=== PATIENT | male | born 1965 | race Caucasian/White ===

== ENCOUNTER 2020-02-11 11:16 | Emergency (ER) | payer OTHER, SELFPAY ==
--- NOTE | ~2020-02-11 | XR_ITS ---
XR chest 1V portable DATE: 02/11/2020 11:52 INDICATION: Cough, shortness of breath TECHNIQUE: Portable upright AP chest on 02/11/2020 at 1147 hours COMPARISON: 03/18/2012 two-view chest FINDINGS: Normal heart size. Mild aortic unfolding. No hilar or mediastinal enlargement. No pulmonary infiltrate or consolidation, pleural effusion or pulmonary vascular congestion or pneumo thorax. Osteopenia. IMPRESSION: No active cardiopulmonary disease Reviewed, dictated and finalized at location B.
[2020-02-11 11:33] VITALS: BP 195/122; PULSE 105; RESP 22; TEMP 36.4; O2SAT 99
[2020-02-11 11:37] VITALS: PULSE 106
--- NOTE | 2020-02-11 11:38 | ED.SOB ---
HPI - SOB/Dyspnea General Chief Complaint: Shortness of Breath/Dyspnea Stated Complaint: shortness breath Time Seen by Provider: 02/11/20 11:21 Source: patient Mode of arrival: ambulatory Limitations: no limitations History of Present Illness HPI Narrative: Patient is a 54-year-old male who presents to emergency department for evaluation of upper respiratory symptoms with pleuritic chest pain. Patient notes possible exposure to work-up with positive individual. 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 Patient denies any vomiting diarrhea. Patient on arrival is in the room in no distress. Related Data Allergies Allergy/AdvReac Type Severity Reaction Status Date / Time No Known Allergies Allergy Verified 02/11/20 11:38 Review of Systems Review of Systems: All systems reviewed & are unremarkable except as noted in HPI and below PMFSH Past Medical History Medical History (Updated 02/11/20 @ 13:02 by Oscar Borden PA-C) Hypertension Family History Family History Father Family history of malignant neoplasm, Onset Age: 65 Other Cerebrovascular accident Diabetes mellitus Family history of arthritis Family history of cardiovascular disease Family history of coronary artery disease Hypertension Social History Social History Smoking status: Never smoker Alcohol intake: current Gender identity (if verbalized by the patient): Male Exam Narrative: Exam Narrative: GENERAL: Well-appearing, well-nourished, and in no acute distress. HEAD: Normocephalic, atraumatic. EYES: PERRLA and EOMI. ENT: Nares clear, no rhinorrhea or epistaxis. Mucous membranes moist. Oropharynx without tonsillar hypertrophy exudate or other lesions. NECK: Supple. No adenopathy or masses CHEST: Clear to auscultation. No respiratory distress. No wheezes rales or rhonchi HEART: Regular rate and rhythm. No murmur heard. EXTREMITIES: Normal range of motion. No edema. SKIN: Warm, dry, no rash. NEURO: No focal deficits. Alert and oriented x3. PSYCH: Normal mood and affect. Course Course Emergency Course: Patient in the room at this time afebrile nontoxic-appearing hemodynamically stable advised to take his blood pressure medications at home no pneumonia no hypoxemia patient with likely viral syndrome patient advised that he could have the novel coated virus and advised to self quarantine and provided with specific reasons to return Vital Signs Vital signs: Vital Signs Temperature 97.6 F 02/11/20 11:33 Pulse Rate 105 H 02/11/20 11:33 Respiratory Rate 22 H 02/11/20 11:33 Blood Pressure 195/122 H 02/11/20 11:33 Pulse Oximetry 99 02/11/20 11:33 Temperature 97.6 F 02/11/20 11:33 Pulse Rate 106 H 02/11/20 11:37 Respiratory Rate 22 H 02/11/20 11:33 Blood Pressure 195/122 H 02/11/20 11:33 Pulse Oximetry 99 02/11/20 11:33 MDM - SOB/Dyspnea MDM Narrative Medical decision making narrative: Patient in the room aware of case findings treatment plan and diagnosis agreeing to follow-up as directed Lab Data Labs: Strep Screen Presumptive Negative *(Reference Range: Negative)* ABG Data Interpretation: ITS Impressions Chest X-Ray 02/11/20 11:53 IMPRESSION: No active cardiopulmonary disease ECG Data EKG #1: ECG completion date: 02/11/20 ECG completion time: 11:25 EKG Interpretation: tachycardia, sinus rhythm, normal QRS, RBBB and left axis Discharge Plan Discharge Clinical Impression: Acute viral syndrome, Upper respiratory infection Patient Disposition: Home, Self-Care Condition: Stable Instructions: Antibiotic Form, Novel C
[2020-02-11 12:12] LABS: Basophils Absolute Auto 0.1 K/mm3 (0.0-0.1); Basophils Percent Auto 0.8 % (0.2-1.2); Eosinophils Absolute Auto 0.3 K/mm3 (0-0.3); Eosinophils Percent Auto 4.7 % (0-4.4); Hematocrit 45.6 % (42.0-52.0); Hemoglobin 15.9 g/dL (14.0-18.0); Immature Granulocyte Absolute 0.02 K/mm3 (0.00-0.031); Immature Granulocyte Percent A 0.3 % (0-0.5); Lymphocytes Absolute Auto 1.29 K/mm3 (0.9-3.2); Lymphocytes Percent Auto 20.9 % (18.3-44.2); Mean Corpuscular HGB Conc 34.9 g/dl (32-36); Mean Corpuscular Volume 94.6 fl (80-100); Mean Platelet Volume 12.6 fl (7.4-10.4); Monocytes Absolute Auto 0.6 K/mm3 (0.1-0.6); Monocytes Percent Auto 8.9 % (2.6-8.5); Neutrophils Percent Auto 64.4 % (45.5-73.1); Platelet Count Result 208 k/mm3 (150-375); Red Blood Count 4.82 M/mm3 (4.6-6.20); Red Cell Distribution Width 12.5 % (11.5-14.5); White Blood Count 6.2 K/mm3 (4.5-10.0)
[2020-02-11 12:29] LABS: Alanine Aminotransferase 36 U/L (4-50); Albumin Level 4.7 g/dL (3.5-5.1); Alkaline Phosphatase 70 U/L (38-126); Aspartate Amino Transferase 28 U/L (17-59); Bilirubin,Total 0.5 mg/dL (0.2-1.3); Blood Urea Nitrogen 13 mg/dL (9-20); CRP < 0.5 mg/dL (<1.0); Calcium 9.2 mg/dL (8.4-10.2); Carbon Dioxide 25 mmol/L (22-30); Chloride 101 mmol/L (98-107); Estimated CRCL calculation 106 ml/min; Estimated Glomerular Filt Rate > 60; Glucose 125 mg/dL (75-110); Lactate Dehydrogenase 399 U/L (313-618); Potassium 4.1 mmol/L (3.4-5.0); Sodium 136 mmol/L (137-145)
[2020-02-11 12:38] LABS: Troponin I < 0.012 ng/mL (0.000-0.034)
[2020-02-11 12:47] VITALS: BP 170/110; PULSE 88; RESP 22; O2SAT 96
--- NOTE | 2020-02-11 13:12 | ECG_ITS ---
Measurements Intervals [place] Rate: 101 P: 17 [place]: 176 QRS: -34 QRSD: 94 T: 73 QT: 358 QTc: 465 Interpretive Statements SINUS TACHYCARDIA LEFT AXIS DEVIATION LOW QRS VOLTAGE IN PRECORDIAL LEADS INCOMPLETE RIGHT BUNDLE BRANCH BLOCK LEFT VENTRICULAR HYPERTROPHY AND ST-T CHANGE POOR R WAVE PROGRESSION, ANTERIOR LEADS LATERAL INFARCT, AGE INDETERMINATE BASELINE WANDER- I, III, V1-V5 ABNORMAL ECG Electronically Signed On 02-11-2020 13:22:23 CDT by Raul Zheng D.O.
[2020-02-11 13:38] VITALS: BP 157/104; PULSE 78; RESP 18; O2SAT 97
[2020-02-18 14:44] LABS: Pan-SARS RNA: NEGATIVE (NEGATIVE); SARS-CoV-2 RNA: NEGATIVE (NEGATIVE)
== END 2020-02-11 13:38 | disposition home or self-care (01) ==
PROVIDERS: Emergency Medicine Emergency Medical Services; Emergency Provider Emergency Medicine; PCP Emergency Medicine
DX: J06.9 Acute upper respiratory infection, unspecified (principal); B34.9 Viral infection, unspecified; Z20.828 Contact with and (suspected) exposure to other viral communicable diseases; I10 Essential (primary) hypertension; R00.0 Tachycardia, unspecified; R94.31 Abnormal electrocardiogram [ECG] [EKG]; I45.10 Unspecified right bundle-branch block; I51.7 Cardiomegaly
CPT/HCPCS: 36415; 71045; 80053; 83615; 84484; 85025; 86140; 87081; 87635; 87804; 87880; 93005; 99284; U0002

== ENCOUNTER 2021-01-05 10:46 | Emergency (ER) | payer OTHER, SELFPAY ==
--- NOTE | ~2021-01-05 | XR_ITS ---
XR lumbar spine 2-3V DATE: 01/05/2021 12:04 INDICATION: Back pain after moving furniture TECHNIQUE: AP, lateral, coned lateral lumbosacral views COMPARISON: None FINDINGS: There is moderate degenerative disc disease at L5-S1. There is minimal degenerative spurrin g of the lumbar vertebrae. No fracture or bone destruction is evident. The lumbar pedicles are intact. No spondylolisthesis. Normal sacroiliac joints. IMPRESSION: No fracture; degenerative changes Reviewed, dictated and finalized at location A. OF ADVERTISING
[2021-01-05 10:48] VITALS: BP 151/104; PULSE 82; RESP 18; TEMP 36.4; O2SAT 100
[2021-01-05] MEDS: KETOROLAC 30 MG/ML VIAL (*BKC) IM (11:52)
--- NOTE | 2021-01-05 12:45 | ED.BACK ---
HPI - Back Pain/Injury General Chief Complaint: Back Pain/Injury Stated Complaint: Lower Back Pain Time Seen by Provider: 01/05/21 11:18 Source: patient Mode of arrival: ambulatory Limitations: no limitations History of Present Illness HPI Narrative: Patient presents with chief complaint of low back pain that began over the weekend after he was shampooing carpets and moving furniture around. He denies one instance of feeling a popping sensation. Patient denies any falls or direct impact. Patient denies any radiation of the low back pain into his lower extremities, saddle paresthesias or loss of bowel or bladder function. Patient states that he has been waiting for the pain to get better over the past few days but has not so he came to the emergency department. Related Data Allergies Allergy/AdvReac Type Severity Reaction Status Date / Time No Known Allergies Allergy Verified 01/05/21 10:51 Review of Systems Review of Systems: Narrative: CONSTITUTIONAL: Denies fever, chills, or sweats. EYES: Denies visual changes, redness, or discharge. ENT: Denies rhinorrhea, congestion, sore throat, or otalgia. CARDIOVASCULAR: Denies chest pain, palpitations, or edema. RESPIRATORY: Denies cough or dyspnea. GASTROINTESTINAL: Denies abdominal pain, nausea, vomiting, or diarrhea. GENITOURINARY: Denies dysuria or hematuria. SKIN: Denies rash or itching. MUSCULOSKELETAL: Reports back pain denies joint pain, or myalgia. NEUROLOGIC: Denies headache, numbness, dizziness, or weakness. PSYCHIATRIC: Denies anxiety or depression. [facility] Past Medical History Medical History (Updated 01/05/21 @ 12:44 by Arias Ingram PA-C) Hypertension Family History Family History Father Family history of malignant neoplasm, Onset Age: 65 Other Cerebrovascular accident Diabetes mellitus Family history of arthritis Family history of cardiovascular disease Family history of coronary artery disease Hypertension Social History Social History Smoking status: Never smoker Alcohol intake: current Gender identity (if verbalized by the patient): Male Exam Narrative: Exam Narrative: GENERAL: Well-appearing, well-nourished, and in no acute distress. HEAD: Normocephalic, atraumatic. EYES: PERRLA and EOMI. CHEST: Clear to auscultation. No respiratory distress. No wheezes rales or rhonchi HEART: Regular rate and rhythm. No murmur heard. Normal peripheral pulses. BACK: Diffuse tenderness with palpation along lower lumbar. No step offs palpated and spine seems to be in typical alignment. ROM intact. No radicular pain. Sensation intact to groin. Patient does move stiffly and has pain with rotation, flexion, and extension. EXTREMITIES: Normal range of motion. No edema. SKIN: Warm, dry, no rash. NEURO: No focal deficits. Alert and oriented x3. PSYCH: Normal mood and affect. Course Vital Signs Vital signs: Vital Signs Temperature 97.5 F L 01/05/21 10:48 Pulse Rate 82 01/05/21 10:48 Respiratory Rate 18 01/05/21 10:48 Blood Pressure 151/104 H 01/05/21 10:48 Pulse Oximetry 100 01/05/21 10:48 Temperature 97.5 F L 01/05/21 10:48 Pulse Rate 82 01/05/21 10:48 Respiratory Rate 18 01/05/21 10:48 Blood Pressure 151/104 H 01/05/21 10:48 Pulse Oximetry 100 01/05/21 10:48 MDM - Back Pain/Injury MDM Narrative Medical decision making narrative: Patient does not have any acute abnormalities on his x-ray. Patient will be given Medrol Dosepak to decrease inflammation and cyclobenzaprine. Patient states he has been taking Tylenol and ibuprofen [id number]. Patient is instructed to follow-up with his primary care for further investigation to his symptoms today. Patient instructed to return to emergency department if he has any emergent symptoms. Differential Diagnosis Differential diagnosis: Likely lumba
[2021-01-05 13:07] VITALS: BP 158/90; PULSE 80; RESP 14; O2SAT 99
== END 2021-01-05 13:09 | disposition home or self-care (01) ==
PROVIDERS: Emergency Provider Emergency Medicine; PCP Emergency Medicine
DX: S39.012A Strain of muscle, fascia and tendon of lower back, initial encounter (principal); I10 Essential (primary) hypertension; X50.0XXA Overexertion from strenuous movement or load, initial encounter
CPT/HCPCS: 72100; 96372; 99283; J1885

== ENCOUNTER 2021-10-04 09:07 | Outpatient (CLI) | payer OTHER, SELFPAY ==
--- NOTE | ~2021-10-04 | NM_ITS ---
EXAMINATION: NM bone scan whole body DATE: 10/04/2021 16:07 INDICATION: Prostate cancer. TECHNIQUE: 25.7 mCi Tc-99m HDP was administered intravenously. Delayed whole-body scintigrams were o btained. COMPARISON: CT abdomen and pelvis 10/04/2021 FINDINGS: There is joint-centimeters increased activity in the left knee and right foot without radio graphic comparison, likely osteoarthritis. There is increased activity at the ischial tuberosities bi laterally correlating with enthesopathy by CT. IMPRESSION: 1. No evidence of metastatic disease. Reviewed, dictated and finalized at location B. 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
--- NOTE | ~2021-10-04 | CT_ITS ---
EXAMINATION: CT abdomen pelvis w con DATE: 10/04/2021 09:41 INDICATION: Prostate cancer. TECHNIQUE: Computed tomography (CT) of the abdomen and pelvis was performed with 100 mL Omnipaque 350 intravenous contrast. Automated exposure control and iterative reconstruction technique were employe d. The dose-length product was 1001.81 mGy-cm. COMPARISON: CT abdomen and pelvis 01/13/2017 FINDINGS: The visualized portions of the lung bases demonstrate mild atelectasis. No pleural effusion . There is left atrial enlargement of the heart. No pericardial effusion. The liver and gallbladder a re normal. Calcifications in the spleen are consistent with old granulomatous disease. The pancreas, adrenal glands, and right kidney are normal. There is a 7 mm cyst in left kidney with focal cortical volume loss. There is a 10 mm cyst in left kidney. The prostate is mildly enlarged. There are bilater al inguinal hernias containing fat. There is diverticulosis of the colon without evidence of divertic ulitis. There are no dilated loops of bowel. The appendix is normal. There are no pathologically enla rged lymph nodes. There is no free intraperitoneal fluid. There is mild thoracic spondylosis and mode rate lumbar spondylosis. There are benign bone islands in the femoral heads. IMPRESSION: 1. No evidence of metastatic disease. Reviewed, dictated and finalized at location B. THERAPY NURSE
[2021-10-04 09:35] LABS: Estimated Glomerular Filt Rate > 60
== END 2021-10-04 09:08 | disposition home or self-care (01) ==
LOC: ANHIMG 09:10
PROVIDERS: PCP Emergency Medicine; Visit Provider Urology
DX: C61 Malignant neoplasm of prostate (principal)
CPT/HCPCS: 74177; 78306; A9561; Q9967

== ENCOUNTER 2021-11-14 08:51 | Outpatient (CLI) | payer OTHER, SELFPAY ==
--- NOTE | ~2021-11-14 | XR_ITS ---
EXAMINATION: XR chest 2V DATE: 11/14/2021 10:15 INDICATION: Malignant neoplasm of prostate. TECHNIQUE: Frontal and lateral views of the chest were obtained. COMPARISON: Chest single view 02/11/2020, CT abdomen and pelvis 10/04/2021 FINDINGS: The chest demonstrates clear lungs without pneumonia, pleural effusion, or pneumothorax. Th e heart size is normal. IMPRESSION: 1. No acute cardiopulmonary disease. Reviewed, dictated and finalized at location A. 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
--- NOTE | 2021-11-14 09:53 | ECG_ITS ---
Measurements Intervals [place] Rate: 64 P: 14 [place]: 191 QRS: -23 QRSD: 93 T: 12 QT: 420 QTc: 433 Interpretive Statements SINUS RHYTHM INCOMPLETE RIGHT BUNDLE BRANCH BLOCK VOLTAGE CRITERIA FOR LVH BASELINE ARTIFACT- I, II, III, AVR, AVL, AVF, V2, V6 BORDERLINE ECG Electronically Signed On 11-14-2021 10:14:02 LICENSED ACUPUNCTURIST by Raul Zheng D.O.
[2021-11-14 10:26] LABS: Basophils Absolute Auto 0.1 K/mm3 (0.0-0.1); Basophils Percent Auto 0.9 % (0.2-1.2); Eosinophils Absolute Auto 0.3 K/mm3 (0-0.3); Eosinophils Percent Auto 6.1 % (0-4.4); Hematocrit 45.2 % (42.0-52.0); Hemoglobin 16.4 g/dL (14.0-18.0); Immature Granulocyte Absolute 0.01 K/mm3 (0.00-0.031); Immature Granulocyte Percent A 0.2 % (0-0.5); Lymphocytes Absolute Auto 0.88 K/mm3 (0.9-3.2); Lymphocytes Percent Auto 16.7 % (18.3-44.2); Mean Corpuscular HGB Conc 36.3 g/dl (32-36); Mean Corpuscular Hemoglobin 33.9 pg (26-34); Mean Corpuscular Volume 93.4 fl (80-100); Mean Platelet Volume 11.7 fl (7.4-10.4); Monocytes Absolute Auto 0.6 K/mm3 (0.1-0.6); Monocytes Percent Auto 11.2 % (2.6-8.5); Neutrophils Absolute Auto 3.4 K/mm3 (1.3-6.7); Neutrophils Percent Auto 64.9 % (45.5-73.1); Platelet Count Result 175 k/mm3 (150-375); Red Blood Count 4.84 M/mm3 (4.6-6.20); Red Cell Distribution Width 12.7 % (11.5-14.5); White Blood Count 5.3 K/mm3 (4.5-10.0)
[2021-11-14 10:27] LABS: Add Urine Microscopic? NO; Appearance Urine Clear (Clear); Bilirubin Urine Negative (Negative); Blood Urine Negative (Negative); Color Urine Yellow (Yellow); Glucose Urine UA Negative (Negative); Ketones Urine Negative (Negative); Leukocyte Esterase Ur Negative LEU/UL (Negative); Nitrate Urine Negative (Negative); Protein Urine Negative (Negative); Specific Grav Ur 1.017 (1.001-1.035); Urobilinogen Urine Negative mg/dL (<2.0)
[2021-11-14 10:36] LABS: INR 0.9; Prothrombin Time 12.2 Seconds (11.1-14.7)
[2021-11-14 10:37] LABS: Partial Thromboplastin Time 24.4 SECONDS (22.3-36.8)
[2021-11-14 10:40] LABS: Alanine Aminotransferase 69 U/L (4-50); Albumin Level 4.7 g/dL (3.5-5.1); Alkaline Phosphatase 67 U/L (38-126); Anion Gap 9 mmol/L (8-16); Aspartate Amino Transferase 40 U/L (17-59); Bilirubin,Total 0.7 mg/dL (0.2-1.3); Blood Urea Nitrogen 12 mg/dL (9-20); Calcium 9.6 mg/dL (8.4-10.2); Carbon Dioxide 26 mmol/L (22-30); Chloride 106 mmol/L (98-107); Estimated Glomerular Filt Rate > 60; Glucose 110 mg/dL (65-110); Potassium 4.5 mmol/L (3.4-5.0); Sodium 141 mmol/L (137-145)
== END 2021-11-14 08:52 | disposition home or self-care (01) ==
PROVIDERS: PCP Emergency Medicine; Visit Provider Urology
DX: C61 Malignant neoplasm of prostate (principal); Z01.818 Encounter for other preprocedural examination; I45.10 Unspecified right bundle-branch block
CPT/HCPCS: 36415; 71046; 80053; 81003; 85025; 85610; 85730; 86850; 86900; 86901; 93005

== ENCOUNTER 2021-11-24 00:20 | Day surgery (SDC) | payer OTHER, SELFPAY ==
[2021-11-14 08:58] VITALS: BMI 32.8
--- NOTE | 2021-11-14 09:15 | PC.NURSE ---
Report to the Outpatient Waiting Room, entrance under the green pavilion located off [facility], at time ___0600____ on date _11/24/21 . OR Time: . - You and your visitor will be asked a series of questions to screen for COVID 19 for your protection. - A mask is required within the hospital. - Only one visitor is allowed at this time. Patient visitors will be guided where to wait when not with patient. Preoperative COVID Testing Requirements: No COVID Test needed if: (proof is required; if not received patient will have Rapid Test prior to entry) - Patient has received COVID Vaccine at least 14 days prior to procedure date or - Patient has positive COVID test result within last 90 days of surgery date. COVID Test needed if above criteria is not met If not COVID vaccinated a COVID test must be conducted within 72 hours of surgery and patient is asked to isolate self from time of testing until procedure. You will go to the [employer] [facility] for your COVID testing. The [employer] [facility] site is located at the corner of [address] from [facility]. You will only be called if COVID results are positive and your surgeon may reschedule your elective surgery date. Patients may have clear liquids (water, carbonated beverages, clear teas, apple juice) until 3 hours prior to surgery with a maximum of 20 ounces. - No food from midnight until time of surgery - Infants may have breast milk until 4 hours before surgery, formula 6 hours prior to surgery. - Children will be allowed to drink immediately following surgery. If applicable, please bring a bottle or sippy cup to assist with drinking. Juice, water, soda, and popsicles are readily available. For infants on formula, please bring formula the day of surgery. Pacifiers are allowed. Take the following medications with a SIP of water the morning of surgery: ___ALPRAZOLAM,METOPROLOL,SERTRALINE Medications to discontinue per physician ___NONE Date to take last dose Please no make-up, nail burkinan, hairspray, perfume, deodorant, or body powder the day of surgery. No jewelry (including any body piercings) or valuables the day of surgery, leave them at home. Please take a shower or bath the night before, or the morning of, surgery with an antibacterial soap. Wear comfortable, loose fitting clothing. Children are encouraged to wear pajamas. - Jewelry must be removed prior to entering the operating room. Rings and piercings that are not removed may be cut off. - The hospital will not accept responsibility for valuables. - Please leave all valuables, including medications, at home the day of surgery. If you are going home after surgery, a licensed school bus driver/mechanic must drive you home. - NO public transportation without another adult. - We recommend that an adult stay with you for 24 hours following discharge. - We also recommend that you do not drive, make important decision, drink alcoholic beverages, or take any drugs that were not prescribed by your health care provider for at least 24 hours after your discharge time. For Pediatric surgeries, we recommend two adults accompany the child home (only one inside the building at this time). Follow any additional instructions given to you from your surgeon. BOWEL PREP PER DR LEWIS VERBAL instructions given to __PATIENT and asked if any additional questions and then verbalized understanding. Patient advised to call surgeon office or pre surgery nurse liaison [phone] if any additional questions.
[2021-11-14 09:32] VITALS: BP 166/99; PULSE 60; RESP 16; TEMP 36.7; O2SAT 98
--- NOTE | 2021-11-17 07:18 | P.HP_ITS ---
H&P: HPI History of Present Illness Date/Time: 11/17/21 07:18 56-year-old male recently referred with a PSA of 7.93. Underwent transrectal ultrasound and biopsy which revealed adenocarcinoma in 11 of 12 cores. [place] score was 6 and 3+4=7 but there was noted to be intraductal components in 2 of the [address] scan of the abdomen and pelvis, bone scan and chest x- ray showed no evidence of metastatic disease. After careful discussion of therapeutic options including active surveillance, androgen deprivation, radiation therapy in its various forms and radical exstrophy of surgery he has elected for the latter. He is aware the risk including, but not limited to, adverse cardiopulmonary events, mortality, rectal injury, urinary incontinence and erectile dysfunction. He is also aware of the potential need for adjuvant therapy. Chief Complaint: Prostate cancer Review of Systems Cardiovascular: Cardiovascular: Denies chest pain, Denies lightheadedness, Denies palpitations and Denies dyspnea Respiratory: Respiratory: Denies dyspnea Gastrointestinal: Gastrointestinal: Denies diarrhea, Denies nausea and Denies vomiting Genitourinary: Genitourinary: Denies hematuria and Denies dysuria Endocrine: Endocrine: Denies palpitations PMF Past Medical History Medical History Hypertension Family History Family History Father Family history of malignant neoplasm, Onset Age: 65 Other Cerebrovascular accident Diabetes mellitus Family history of arthritis Family history of cardiovascular disease Family history of coronary artery disease Hypertension Social History Social History Smoking status: Never smoker Alcohol intake: current Drinks per week: 10 Gender identity (if verbalized by the patient): Male Spiritual care concerns: No Meds Home Medications and Allergies Home Medications Medication Instructions Recorded Confirmed Type metoprolol succinate 100 mg See Rx Instructions .ROUTE 02/21/21 11/14/21 Rx tablet,extended release 24 hr .COMPLEX #90 tablet sertraline 100 mg tablet 100 mg PO DAILY #90 tablet 07/12/21 11/14/21 Rx losartan 100 mg tablet See Rx Instructions .ROUTE 08/12/21 11/14/21 Rx .COMPLEX #90 tablet phentermine 37.5 mg capsule 37.5 mg PO DAILY #30 cap 10/10/21 11/14/21 Rx topiramate 25 mg tablet 25 mg PO QAM #30 tablet 10/10/21 11/14/21 Rx alprazolam [Xanax] 0.5 mg PO PRN PRN 11/14/21 11/14/21 History omeprazole 20 mg PO PRN PRN 11/14/21 11/14/21 History Allergies Allergy/AdvReac Type Severity Reaction Status Date / Time No Known Allergies Allergy Verified 11/14/21 08:59 Exam Const: General: no acute distress Resp: Effort & Inspection: normal respiratory effort GI: Inspection: non-distended GI Palp: No abdominal tenderness and No Guarding due to palpation present (GI) Auscultation: normal bowel sounds Assessment and Plan Assessment and plan (1) Prostate cancer: Code(s): C61 - Malignant neoplasm of prostate Status: Acute Assessment and Plan: * Robotic assisted radical prostatectomy with bilateral pelvic lymphadenectomy
[2021-11-24] VITALS (21 sets, daily range): BP systolic 88–150; BP diastolic 54–97; PULSE 60–71; RESP 12–20; TEMP 36–36.6; O2SAT 88–100
[2021-11-24] MEDS: LACTATED RINGERS 1,000 ML 30 ML IV CONT ×3 (06:30→11:56)
--- NOTE | 2021-11-24 06:48 | P.PNAN_ITS ---
Anes - Initial Pre Proc Eval Procedure: Operation Date: 11/24/21 07:30 Proposed Procedures p Robotic Assisted Laparoscopic Prostatectomy with Bilateral Pelvic Lymph Node Dissection - Shreyas Max MD Date/Time: 11/24/21 06:48 Surgeon: Shreyas Max MD Pre Op Diagnosis: prostate cancer Patient Data Age: 56 Gender: M Height: 1.85 m Weight: 112.9 kg Last Vital Signs Temp 36.7 C 11/14/21 09:32 Pulse 60 11/14/21 09:32 Resp 16 11/14/21 09:32 BP 166/99 H 11/14/21 09:32 Pulse Ox 98 11/14/21 09:32 Allergies Allergy/AdvReac Type Severity Reaction Status Date / Time No Known Allergies Allergy Verified 11/24/21 06:17 Home Medications Medication Instructions Recorded Confirmed Type sertraline 100 mg tablet 100 mg PO DAILY #90 tablet 07/12/21 11/24/21 Rx phentermine 37.5 mg capsule 37.5 mg PO DAILY #30 cap 10/10/21 11/14/21 Rx topiramate 25 mg tablet 25 mg PO QAM #30 tablet 10/10/21 11/14/21 Rx alprazolam [Xanax] 0.5 mg PO PRN PRN 11/14/21 11/24/21 History omeprazole 20 mg PO PRN PRN 11/14/21 11/24/21 History losartan 100 mg PO DAILY 11/24/21 11/24/21 History metoprolol succinate 100 mg PO DAILY 11/24/21 11/24/21 History Patient hx anesthesia problems: none Family hx anesthesia problems: none Results Review: All pre-operative results and documents have been reviewed as part of the pre-operative evaluation. [facility] Past Medical History Medical History (Updated 11/17/21 @ 07:20 by Shreyas Max MD) Hypertension Surgical History Surgical History (Updated 11/24/21 @ 06:57 by Tevin Self MD) H/O arthroscopic knee surgery Family History Family History Father Family history of malignant neoplasm, Onset Age: 65 Other Cerebrovascular accident Diabetes mellitus Family history of arthritis Family history of cardiovascular disease Family history of coronary artery disease Hypertension Social History Social History Smoking status: Never smoker Alcohol intake: current Drinks per week: 10 Living arrangements: with family Gender identity (if verbalized by the patient): Male Spiritual care concerns: No Anes - Eval Final PreProcedure Day of Procedure 11/24/21 06:48 Patient weight: obese Lungs: clear to auscultation Airway: Mallampati scale class II Neurological: alert and oriented Last oral intake: >/= 8 hours ASA classification: III Emergent: no Anesthetic plan: proceed Anesthesia type and monitoring: general ETT and standard monitoring Results Review: All pre-operative results and documents have been reviewed as part of the pre-operative evaluation. Informed Consent: The patient's anesthetic plan and its attendant risks and benefits were discussed with the patient/family/POA. Questions were solicited and answers provided to the satisfaction of the patient/family/POA.
--- NOTE | 2021-11-24 07:00 | WPDHPUPDATE1 ---
History and Physical Update Update Date/Time: 11/24/21 07:00 History and Physical has been reviewed, including an updated exam of the patient. There are NO changes in the patient's condition. Risks, benefits, and alternatives have been discussed and questions answered. Patient agrees to proceed with procedure.
[2021-11-24] MEDS: ceFAZolin 2 GM/D5W 50 ML 2 GM/50 ML BAG IVPB (07:28)
--- NOTE | 2021-11-24 11:07 | W.PM.PROC2 ---
Procedure Note - Detailed Date of Procedure 11/24/21 Pre-op Diagnosis prostate cancer Post-op Diagnosis same Procedure Performed Robotic-assisted radical prostatectomy with bilateral pelvic lymphadenectomy Surgeon Shreyas Max MD Description of Procedure The patient was brought to the operative suite, where he was prepped and draped in routine sterile fashion while in a dorsal lithotomy, deep Trendelenburg position. A supraumbilical 10 mm trocar was placed after insufflation of the abdomen with a Veress needle. Three robotic ports were then placed under direct vision. Two of these were placed in the right lower quadrant - 10 cm and 20 cm lateral to, and in line with, the umbilicus. A third robotic trocar was placed 10 cm to the left of the umbilicus, and 20 cm to the left of the umbilicus, a 12 mm standard laparoscopic trocar was placed to be used as an assistant technician port. Lastly, a 5 mm trocar was placed in the left upper quadrant midway between the umbilicus and the left robotic trocar. Attention was then turned to the prostatectomy. I opted for a posterior approach in this patient. An incision was made in the parietal peritoneum along the posterior bladder/posterior prostate about 2 cm above the reflection of the peritoneum over the anterior rectum. The seminal vesicles and vas deferens were immediately identified. Dissection is undertaken in a fashion so as to avoid electrocautery as much as possible, particularly near the tips of the seminal vesicles. Dissection was also carried out in the midline so as to avoid any encounters with the ureters. The vas deferens and the seminal vesicles were dissected in their entirety to the base of the prostate. The plane anterior to Denoviller's fascia, anterior to the rectum and posterior to the prostate was then developed. I then dropped the bladder by incising the anterior parietal peritoneum just lateral to the median umbilical ligaments bilaterally. The bladder was dropped from the anterior abdominal and pelvic wall. The endopelvic fascia was identified and incised bilaterally, allowing for dissection of the posterior-lateral aspect of the prostate. The puboprostatic ligaments were transected near their origin from the posterior pubic ramus. This posterior lateral dissection of the prostate is also undertaken in a fashion so as to avoid electrocautery as much as possible. The dorsal vein of the penis is then secured with an 0 -Vicryl ligature. Attention is then turned to the bladder neck. The anterior bladder neck is incised at the vesico-prostatic junction. The previously placed urethral catheter was drawn through the urethrotomy. A very small bladder neck was maintained throughout the remainder of this dissection. The posterior bladder neck was incised in a fashion so as to avoid any injury to the ureteral orifices. Again, the small aperture of the bladder neck was maintained. The previously dissected vas deferens and the seminal vesicles were brought through the posterior bladder neck incision. The lateral prostatic pedicles were then carefully dissected from the lateral aspect of the prostate bilaterally. The prostatic pedicles were secured with Weck clips and transected. The neurovascular bundles were carefully dissected from the posterior-lateral aspect of the prostate. The dorsal vein of the penis was incised with electrocautery. Using cold scissors, the urethra was incised. After withdrawing the previously placed urethral catheter, the posterior urethra was sharply incised, as was the rectalurethralis muscle. Attention was then turned to an extended bilateral pelvic lymphadenectomy. The limits of this dissection were similar bilaterally. Specifically, the limits were the bifurcation of the common iliac vein proximally, the inguinal ligament distally, the obturator nerve posteriorly and the anterior aspect to the external iliac artery laterally. This dissection was undertaken with care to av
[2021-11-24] MEDS: fentaNYL CITRATE INJ (*CRX) 100 MCG/2 ML VIAL 25 MCG IV PUSH ×5 (12:08→12:45)
[2021-11-24] MEDS: KETOROLAC (*BKC) 60 MG/2 ML VIAL IM (13:25)
[2021-11-24] MEDS: LACTATED RINGERS 1,000 ML 125 ML IV CONT (15:55)
--- NOTE | 2021-11-24 15:59 | ADMGEN ---
This patient, Eleuterio Anand, was admitted to [facility], [facility]. Patient/family oriented to hospital policies and general routines including ID bracelet, bed and alarms, visiting hours, pain management, procedures, bathroom and other care routines, personal items, smoking policy, room service/diet, and visiting hours. Information on how to activate the Rapid Response Team has been discussed. Patient/Family are encouraged to report perceived risks to care and to ask questions if they do not understand what they are told or what they should do.
[2021-11-24] MEDS: HYDROcodone/acetaminophen (*CRX) 7.5-325 MG TABLET 1 TAB PO (18:21)
[2021-11-25 00:19] VITALS: BP 131/89; PULSE 71; RESP 16; TEMP 37; O2SAT 96
[2021-11-25] MEDS: LACTATED RINGERS 1,000 ML 125 ML IV CONT ×2 (00:20→08:33)
[2021-11-25] MEDS: HYDROcodone/acetaminophen (*CRX) 7.5-325 MG TABLET 1 TAB PO ×2 (00:30→07:45)
[2021-11-25] MEDS: ALPRAZolam (*CRX) 0.5 MG TABLET PO (00:37)
[2021-11-25] MEDS: KETOROLAC 30 MG/ML VIAL (*BKC) IV PUSH ×2 (00:37→07:45)
[2021-11-25 04:42] LABS: Hematocrit 34.6 % (42.0-52.0); Hemoglobin 12.2 g/dL (14.0-18.0)
[2021-11-25 05:00] LABS: Anion Gap 8 mmol/L (8-16); Blood Urea Nitrogen 13 mg/dL (9-20); Calcium 8.2 mg/dL (8.4-10.2); Carbon Dioxide 24 mmol/L (22-30); Chloride 104 mmol/L (98-107); Estimated CRCL calculation 119 ml/min; Estimated Glomerular Filt Rate > 60; Glucose 118 mg/dL (65-110); Potassium 3.5 mmol/L (3.4-5.0); Sodium 136 mmol/L (137-145)
[2021-11-25 05:33] VITALS: BP 124/79; PULSE 67; RESP 16; TEMP 36.8; O2SAT 94
--- NOTE | 2021-11-25 07:25 | WPDUROPN2 ---
Progress Note: A&P Assessment and Plan (1) Prostate cancer: Code(s): C61 - Malignant neoplasm of prostate Status: Acute Assessment and Plan: Doing well POD #1. Will advance to regular diet and ambulate this morning. Anticipate discharge later today. Subjective Subjective Date/Time Seen: 11/25/21 07:25 Mild to moderate abdominal distention and discomfort without nausea or vomiting. Tolerating regular diet in small amounts. Review of Systems Cardiovascular: Cardiovascular: Denies chest pain, Denies lightheadedness, Denies palpitations and Denies dyspnea Respiratory: Respiratory: Denies dyspnea Gastrointestinal: Gastrointestinal: Reports abdominal pain, Denies diarrhea, Denies nausea and Denies vomiting Genitourinary: Genitourinary: Denies hematuria and Denies dysuria Endocrine: Endocrine: Denies palpitations Exam Const: General: no acute distress Resp: Effort & Inspection: normal respiratory effort GI: Inspection: distended and incision ( clean and dry) GI Palp: No abdominal tenderness and No Guarding due to palpation present (GI) Auscultation: normal bowel sounds Urinary Catheter: Urinary Catheter: patent and draining and urine clear Objective Data Vital Signs Vital Signs: Vital Signs - 24 hr 11/24/21 11:12 11/24/21 11:25 11/24/21 11:40 Temperature 97.4 F L Pulse Rate 61 63 64 Respiratory Rate 12 16 18 Blood Pressure 92/54 L 120/70 95/65 L Pulse Oximetry 93 97 97 11/24/21 11:45 11/24/21 11:55 11/24/21 12:10 Temperature Pulse Rate 66 63 Respiratory Rate 18 16 Blood Pressure 88/62 L 100/70 Pulse Oximetry 88 L 94 92 11/24/21 12:25 11/24/21 12:40 11/24/21 12:55 Temperature Pulse Rate 65 67 64 Respiratory Rate 18 18 16 Blood Pressure 118/86 111/73 110/70 Pulse Oximetry 94 97 97 11/24/21 13:10 11/24/21 13:25 11/24/21 13:40 Temperature Pulse Rate 63 65 62 Respiratory Rate 16 16 15 Blood Pressure 107/60 97/70 L 106/70 Pulse Oximetry 98 98 99 11/24/21 13:55 11/24/21 14:10 11/24/21 14:25 Temperature Pulse Rate 61 65 60 Respiratory Rate 15 16 16 Blood Pressure 102/72 107/74 102/76 Pulse Oximetry 99 98 98 11/24/21 14:40 11/24/21 14:55 11/24/21 15:19 Temperature 97.9 F Pulse Rate 60 60 62 Respiratory Rate 14 14 12 Blood Pressure 98/69 L 106/74 102/61 Pulse Oximetry 98 98 97 11/24/21 18:15 11/24/21 20:00 11/25/21 00:19 Temperature 97.9 F 98.6 F Pulse Rate 65 71 71 Respiratory Rate 16 16 16 Blood Pressure 114/80 131/89 Pulse Oximetry 96 96 96 11/25/21 05:33 Temperature 98.2 F Pulse Rate 67 Respiratory Rate 16 Blood Pressure 124/79 Pulse Oximetry 94 Intake/Output Intake/Output: Intake & Output 11/22/21 11/23/21 11/24/21 11/25/21 23:59 23:59 23:59 23:59 Intake Total 1850 1340 Output Total 400 825 Balance 1450 515 Meds/Results Medications: Active Medications Generic Name Dose Route Start Last Admin Trade Name Freq PRN Reason Stop Dose Admin Hydrocodone Bitart/Acetaminophen 1 tab 11/24/21 17:40 11/25/21 00:30 Hydrocodone/Acetaminophen (*Crx) 7.5-325 Mg Tablet PO 1 tab Q6H PRN Administration Pain Rated 7-10 Alprazolam 0.5 mg 11/24/21 14:56 11/25/21 00:37 Alprazolam (*Crx) 0.5 Mg Tablet PO 0.5 mg PRN PRN Administration anxiety Hyoscyamine 0.125 mg 11/24/21 14:56 Hyoscyamine Sulfate 0.125 Mg Tablet SUBLINGUAL Q4H PRN Bladder Spasm Lactated Ringer's 1,000 mls @ 125 mls/hr 11/24/21 14:56 11/25/21 00:20 Lr - Lactated Ringers Iv IV CONT 125 mls/hr .Q8H JEREMÍAS Administration Acetaminophen 1,000 mg in 100 mls @ 400 mls/hr 11/24/21 20:00 11/25/21 07:04 Ofirmev 1,000 Mg Ivpb IVPB 11/25/21 19:59 Not Given Q6H JEREMÍAS Ketorolac Tromethamine 30 mg 11/24/21 14:56 11/25/21 00:37 Ketorolac 30 Mg/Ml Vial (*[facility]) IV PUSH 11/25/21 14:55 30 mg Q6H PRN Administration Pain Rated 4-6 Levofloxacin 500 mg 11/25/21 09:00 Levoflox
[2021-11-25 07:45] VITALS: BP 124/80; PULSE 71; RESP 16; TEMP 36.9; O2SAT 93
[2021-11-25] MEDS: SERTRALINE HCL 50 MG TABLET 100 MG PO (08:33)
[2021-11-25 08:34] VITALS: PULSE 71
[2021-11-25] MEDS: LOSARTAN POTASSIUM 100 MG TABLET PO (08:34)
[2021-11-25] MEDS: TOPIRAMATE 25 MG TABLET PO (08:34)
[2021-11-25] MEDS: METOPROLOL SUCCINATE EXT REL 100 MG TABCR PO (08:34)
[2021-11-25] MEDS: levoFLOXacin 500 MG TABLET PO (08:34)
--- NOTE | 2021-11-25 10:12 | PM.DS ---
DS: Admitting Diagnosis Discharge Date 11/25/2021 @1010 Admitting Diagnosis Prostate cancer DS: Summary Hospital Course Hospital Course: This patient was admitted on the morning of his planned robotic prostatectomy. This procedure was uneventful, as was his postoperative course. By the evening of the procedure he was sitting at the bedside in tolerating a liquid diet. The following morning he was ambulating freely and tolerating regular food. His catheter drainage remained essentially clear throughout. His postoperative hemoglobin and serum creatinine were unremarkable. At the time of discharge he has been instructed in appropriate care for his Molina catheter with both a leg bag and bedside bag. He will be discharged with plans to follow-up in 1 week with a cystogram. Time Spent with Patient Time attestation: Total time spent providing and/or coordinating discharge services: DS: Data Data Completed and Pending Pending studies at discharge: Pending at discharge 11/24/21 09:22 Surgical [PTH] Routine Labs on day of discharge: Labs from last 24 hours 11/25/21 11/25/21 04:33 04:33 Hgb 12.2 L D Hct 34.6 L Sodium 136 L Potassium 3.5 Chloride 104 Carbon Dioxide 24 Anion Gap 8 BUN 13 Creatinine 0.80 Estim Creat Clear Calc 119 Estimated GFR > 60 Glucose 118 H Calcium 8.2 L Discharge Plan Discharge Patient Disposition: Home Health Service Discharge Instructions: 1) Molina catheter -> leg bag / bedside bag at night. 2) No lifting/straining >15lbs. x3 weeks. 3) No driving x1-week. 4) Resume normal, pre-operative diet. 5) My office will contact regarding follow-up in 1-week with cystogram. Patient Instructions: Antibiotic Form Stand Alone Forms: General Discharge Information, General Discharge Instructions Discharge Orders: Discharge Order (Routine); Ordered 11/25/21 Ordered By: Shreyas Max Discharge Medications: New hydrocodone-acetaminophen 5-325 mg tablet 1 - 2 tablet PO Q6H PRN (Reason: pain) Qty: 30 RF: 0 docusate sodium [Colace] 100 mg capsule 100 mg PO DAILY Qty: 30 RF: 0 ciprofloxacin HCl 500 mg tablet 500 mg PO Q12H Qty: 10 RF: 0 hyoscyamine sulfate 0.125 mg tablet 0.125 mg PO Q6H PRN (Reason: bladder spasms) Qty: 20 RF: 2 Continued phentermine 37.5 mg capsule 37.5 mg PO DAILY Qty: 30 RF: 0 topiramate [Topamax] 25 mg tablet 25 mg PO QAM Qty: 30 RF: 0 sertraline 100 mg tablet 100 mg PO DAILY Qty: 90 RF: 0 alprazolam [Xanax] 0.5 mg tablet 0.5 mg PO PRN PRN (Reason: anxiety) RF: 0 omeprazole 20 mg Capsule,Delayed Release(Dr/Ec) 20 mg PO PRN PRN (Reason: Heartburn) RF: 0 metoprolol succinate 100 mg tablet extended release 24 hr 100 mg PO DAILY RF: 0 losartan 100 mg tablet 100 mg PO DAILY RF: 0
== END 2021-11-25 10:50 | disposition home health service (06) ==
LOC: ANHSURGERY 06:54 → ANHSUROVER 15:26
PROVIDERS: PCP Emergency Medicine; Visit Provider Urology
PROC: 0VT04ZZ Resection of Prostate, Percutaneous Endoscopic Approach (ICD-10-PCS; CPT 55867; principal; 2021-11-24 07:30)
DX: C61 Malignant neoplasm of prostate (principal); I10 Essential (primary) hypertension; E66.9 Obesity, unspecified; Z68.32 Body mass index [BMI] 32.0-32.9, adult
CPT/HCPCS: 55866; 38571; S2900; 36415; 71046; 80048; 80053; 81003; 85014; 85018; 85025; 85610; 85730; 86850; 86900; 86901; 88305; 88309; 93005; A9270; J0131; J0690; J1100; J1170; J1885; J2250; J2370; J2405; J2704; J2710; J3010; J7030; J7120

== ENCOUNTER 2021-12-02 08:42 | Outpatient (CLI) | payer OTHER, SELFPAY ==
--- NOTE | ~2021-12-02 | XR_ITS ---
XR cystogram DATE: 12/02/2021 09:12 INDICATION: Postoperative one week from prostatectomy TECHNIQUE: 100 mL dilute Omnipaque 350 contrast material was allowed to enter the urinary bladder by gravity through the existing nasogastric tube. COMPARISON: None FINDINGS: The patient complained of considerable discomfort at 100 cc volume. No intraluminal mass lesion of the urinary bladder or extravasation of contrast material or vesical u reteral reflux is demonstrated. IMPRESSION: No evidence of bladder leak Reviewed, dictated and finalized at [facility]. Reviewed, dictated and finalized at location [facility]. RANS SERVICE REPRESENTATIVE IMPRESSION: No evidence of bladder leak
== END 2021-12-02 08:43 | disposition home or self-care (01) ==
LOC: ANHIMG 08:44
PROVIDERS: PCP Emergency Medicine; Visit Provider Urology
DX: C61 Malignant neoplasm of prostate (principal)
CPT/HCPCS: 51600; 74430; Q9967

== ENCOUNTER 2022-02-22 17:13 | Emergency (ER) | payer OTHER, SELFPAY ==
--- NOTE | ~2022-02-22 | XR_ITS ---
EXAM: XR shoulder LT min 2V HISTORY: fall/pain SINCE DEC, PAIN TO POSTERIOR AND ANTERIOR SIDES COMPARISON: None available FINDINGS: Normal mineralization. No fracture or dislocation. No lytic or blastic lesion. Joint space s maintained. No erosion or periosteal change. Soft tissues within normal limits. IMPRESSION: No acute osseous finding in the left shoulder. Reviewed, dictated and finalized at location [facility].
[2022-02-22 17:15] VITALS: BP 168/100; PULSE 77; RESP 16; TEMP 36.9; O2SAT 99
--- NOTE | 2022-02-22 17:35 | ED.UPPEXIN ---
HPI - Extremity Injury (Upper) General Chief Complaint: Extremity Injury, Upper Stated Complaint: fall, left shoulder injury Time Seen by Provider: 02/22/22 17:16 History of Present Illness HPI narrative: 56-year-old male presents the emergency room for evaluation of left shoulder injury that occurred over 8 weeks ago. Patient states that he slipped on ice, landing directly on his lateral aspect of his left shoulder. Patient states he has pain with certain range of motion movements. Has not been evaluated by a medical provider since injuring his shoulder Related Data Home Medications Medication Instructions Recorded Confirmed omeprazole 20 mg PO PRN PRN 11/14/21 11/24/21 losartan 100 mg PO DAILY 11/24/21 11/24/21 metoprolol succinate 100 mg PO DAILY 11/24/21 11/24/21 Allergies Allergy/AdvReac Type Severity Reaction Status Date / Time No Known Allergies Allergy Verified 02/22/22 17:17 Review of Systems Review of Systems: CONSTITUTIONAL: Denies fever, chills, or sweats. EYES: Denies visual changes, redness, or discharge. ENT: Denies rhinorrhea, congestion, sore throat, or otalgia. CARDIOVASCULAR: Denies chest pain, palpitations, or edema. RESPIRATORY: Denies cough or dyspnea. GASTROINTESTINAL: Denies abdominal pain, nausea, vomiting, or diarrhea. GENITOURINARY: Denies dysuria or hematuria. SKIN: Denies rash or itching. MUSCULOSKELETAL: Reports left shoulder pain NEUROLOGIC: Denies headache, numbness, dizziness, or weakness. PSYCHIATRIC: Denies anxiety or depression. [facility] Past Medical History Medical History Hypertension Surgical History Surgical History H/O arthroscopic knee surgery Family History Family History Father Family history of malignant neoplasm, Onset Age: 65 Other Cerebrovascular accident Diabetes mellitus Family history of arthritis Family history of cardiovascular disease Family history of coronary artery disease Hypertension Social History Social History Smoking status: Never smoker Alcohol intake: never Drinks per week: 10 Substance use: never Substance use type: does not use Gender identity (if verbalized by the patient): Male Spiritual care concerns: No Exam Narrative: GENERAL: Well-appearing, well-nourished, and in no acute distress. HEAD: Normocephalic, atraumatic. EYES: PERRLA and EOMI. CHEST: Clear to auscultation. No respiratory distress. No wheezes rales or rhonchi HEART: Regular rate and rhythm. No murmur heard. Normal peripheral pulses. ABDOMEN: Soft, nontender, nondistended, normal active bowel sounds. EXTREMITIES: Left shoulder: Tenderness to the subscapularis area. Positive empty can test, positive internal rotation lag sign; no bony abnormality, no soft tissue swelling, no ecchymosis, neurovascular is intact distally SKIN: Warm, dry, no rash. NEURO: No focal deficits. Alert and oriented x3. PSYCH: Normal mood and affect. Course Vital Signs Vital signs: Vital Signs Temperature 36.9 C 02/22/22 17:15 Pulse Rate 77 02/22/22 17:15 Respiratory Rate 16 02/22/22 17:15 Blood Pressure 168/100 H 02/22/22 17:15 Pulse Oximetry 99 02/22/22 17:15 Temperature 36.9 C 02/22/22 17:15 Pulse Rate 77 02/22/22 17:15 Respiratory Rate 16 02/22/22 17:15 Blood Pressure 168/100 H 02/22/22 17:15 Pulse Oximetry 99 02/22/22 17:15 MDM - Extremity Injury (Upper) MDM Narrative Medical decision making narrative: 56-year-old male presents the emergency room for evaluation of left shoulder pain. Patient states that he sustained the injury several weeks ago when he fell landing directly on the shoulder. X-ray showed no acute osseous abnormality. Patient likely either has a rotator cuff injury or an AC join
== END 2022-02-22 18:39 | disposition home or self-care (01) ==
PROVIDERS: Emergency Provider Nurse Practitioner Family; PCP Emergency Medicine
DX: S49.92XA Unspecified injury of left shoulder and upper arm, initial encounter (principal); I10 Essential (primary) hypertension; W00.0XXA Fall on same level due to ice and snow, initial encounter
CPT/HCPCS: 73030; 99283

== ENCOUNTER 2022-12-01 08:42 | Emergency (ER) | payer OTHER, SELFPAY ==
--- NOTE | ~2022-12-01 | XR_ITS ---
XR knee RT 2V DATE: 12/01/2022 09:29 INDICATION: Right knee gave out. Patient felt a pop. Anterior pain. Swelling for 4 days. TECHNIQUE: AP and crosstable lateral views COMPARISON: None FINDINGS: Mild suprapatellar knee joint effusion. Prominent superior pole patellar enthesopathy at quadriceps tendon insertion. No fracture or dislocation, periosteal reaction or bone destruction is evident. Joint spaces appear w ell preserved. No radiopaque intra-articular loose body or chondrocalcinosis. IMPRESSION: Mild suprapatellar knee joint effusion Reviewed, dictated and finalized at location [facility]. ISTICS PROFESSOR
[2022-12-01 08:46] VITALS: BP 191/125; PULSE 71; RESP 16; TEMP 36.6; O2SAT 100
--- NOTE | 2022-12-01 09:11 | ED.LOWEXIN ---
HPI - Extremity Injury (Lower) General Chief Complaint: Extremity Injury, Lower Stated Complaint: RIGHT KNEE PAIN Time Seen by Provider: 12/01/22 08:53 History of Present Illness HPI Narrative: Patient is a 57-year-old male with a history of hypertension here for evaluation of right knee pain over the past 4 days. Patient states that his pain began while he was squatting down changing his pants. He states that he felt a snap in his knee. He has been taking ibuprofen and Tylenol with transient relief, none today. He has been able to walk and stand without pain but notes pain with flexion of the knee. Presents today due to longevity of symptoms. No numbness or tingling in the foot or leg. Related Data Home Medications Medication Instructions Recorded Confirmed losartan 100 mg tablet 100 mg PO DAILY 11/24/21 11/24/21 Allergies Allergy/AdvReac Type Severity Reaction Status Date / Time No Known Allergies Allergy Verified 12/01/22 09:12 Review of Systems Review of Systems: Gen.: Denies fevers or chills Eyes: Denies eye pain or visual change ENT: Denies congestion Respiratory: Denies shortness of breath or cough CV: Denies chest pain or palpitations GI: Denies abdominal pain nausea, emesis or diarrhea denies burning, urgency, frequency or hematuria Musculoskeletal: Reports right knee pain Neuro: Denies numbness, tingling, weakness or focal weakness Skin: Denies rash Except as documented, all other systems reviewed and negative [facility] Past Medical History Medical History Cancer Hypertension Surgical History Surgical History H/O arthroscopic knee surgery History of prostatectomy Family History Family History Father Family history of malignant neoplasm, Onset Age: 65 Hypertension Heart disease Mother Hypertension Heart disease Other Cerebrovascular accident Diabetes mellitus Family history of arthritis Family history of cardiovascular disease Family history of coronary artery disease Social History Social History Smoking status: Never smoker Alcohol intake: current Drinks per week: 10 Substance use: never Substance use type: does not use Living arrangements: with family Occupation/Education: occupation 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 Head: Normocephalic and atraumatic. EYES: PERRLA/EOMI, conjunctivae clear NOSE: No nasal drainage EARS: External ear normal in appearance THROAT: Oropharynx is clear. Mucous membranes are moist. NECK: Supple. No adenopathy, no masses. RESPIRATORY: Airway patent, respirations nonlabored. Clear to auscultation bilaterally, no rales, rhonchi, wheezing. CARDIOVASCULAR: Regular rate and rhythm without murmurs, rubs, or gallops. ABDOMINAL: Normoactive bowel sounds. Soft, nontender, nondistended. No rebound tenderness or guarding. MUSCULOSKELETAL: Tenderness to palpation along the superior medial and lateral joint line of the right patella, no deformity noted or ballottement. He has a negative anterior and posterior drawer test. He does have some laxity noted with valgus stress. He has full active range of motion, only notes pain with flexion of the right knee. Strong palpable pulses. No swelling noted. NEURO: Normal speech. No focal neurologic deficits. SKIN: Skin is warm and dry. No rashes. PSYCHIATRIC: Normal affect/mood.. Course Vital Signs Vital signs: Vital Signs Temperature 97.8 F 12/01/22 08:46 Pulse Rate 71 12/01/22 08:46 Respiratory Rate 16 12/01/22 08:46 Blood
[2022-12-01] MEDS: KETOROLAC 30 MG/ML VIAL (*BKC) IM (09:14)
[2022-12-01 09:46] VITALS: BP 178/99; PULSE 71; RESP 17; O2SAT 97
== END 2022-12-01 09:50 | disposition home or self-care (01) ==
PROVIDERS: Emergency Provider Physician Assistant; PCP Emergency Medicine
DX: M25.461 Effusion, right knee (principal); I10 Essential (primary) hypertension; Z90.79 Acquired absence of other genital organ(s); Z85.46 Personal history of malignant neoplasm of prostate
CPT/HCPCS: 73560; 96372; 99283; J1885

== ENCOUNTER 2024-01-18 09:40 | Outpatient (CLI) | payer OTHER, SELFPAY ==
--- NOTE | ~2024-01-18 | XR_ITS ---
Lumbosacral Spine: AP and lateral views Clinical History: Pain Findings: The normal lordotic curve is maintained. The vertebral bodies and posterior elements are i ntact. The intervertebral disc spaces are preserved. There is moderate to advanced facet arthropathy at L4-L5 and L5-S1. The sacroiliac joints are normally outlined. Impression: Facet arthropathy, as above. Reviewed, dictated and finalized at location . TICAL SCIENTIST Impression: Facet arthropathy, as above.
== END 2024-01-18 09:41 | disposition home or self-care (01) ==
LOC: ANHIMG 09:42
PROVIDERS: PCP Emergency Medicine; Visit Provider Emergency Medicine
DX: M54.50 Low back pain, unspecified (principal)
CPT/HCPCS: 72100

== ENCOUNTER 2024-05-10 07:28 | Outpatient (CLI) | payer OTHER, SELFPAY ==
--- NOTE | ~2024-05-10 | MR_ITS ---
EXAMINATION: MR knee RT wo con DATE: 05/10/2024 08:08 INDICATION: Anterior right knee pain and stiffness TECHNIQUE: Magnetic resonance imaging (MRI) of the right knee was performed without intravenous contr ast. Sequences included coronal PD-weighted FSE, coronal PD-weighted FS FSE, sagittal T2-weighted FS E, sagittal PD-weighted FS FSE and axial PD weighted fat saturated FSE. COMPARISON: None. FINDINGS: Medial compartment: Complex tear at the posterior horn of the medial meniscus with both a longitudinal horizontal tear pl ane as well as a radial tear plane which involves inner third and then progresses peripherally and me dially along the meniscus cephalad to the horizontal tear plane. Partial-thickness chondral ulceratio n, shallow chondral surface regularity at the anterior weightbearing medial femoral condyle and with more prominent cartilage loss still no greater than 50% the cartilage thickness at the central weight bearing medial femoral condyle. Normal articular cartilage along the medial tibial plateau. Lateral compartment: Lateral meniscus is normal. Mild partial-thickness cartilage loss with underlying small subchondral o steophytes along the posterior margin of the weightbearing lateral femoral condyle. Remaining articul ar cartilage in the lateral compartment is normal. Patellofemoral compartment: Patellar cartilage is normal. Deep chondral ulceration with minimal underlying cortical irregularity at the inferior aspect of the trochlear groove and medial trochlea where there is also some mild suba rticular edema-like signal change. Ligaments and tendons: Anterior and posterior cruciate ligaments are normal. The fibular collateral ligament complex is norm al. There is a 12 x 9 x 2 mm intrasubstance ganglion cyst extending between the otherwise normal-appe aring deep and superficial components of the proximal medial collateral ligament. Patellar tendon is normal. Mild distal quadriceps tendinopathy with moderate-sized enthesophytes at its patellar inserti on. The visualized medial and lateral hamstring tendons as well as the iliotibial band are normal. Fluid: Small right knee joint effusion at the suprapatellar pouch. No loose osteochondral bodies identified. Moderate sized Lee's cyst. There is an additional small multilobulated ganglion cyst along the pos terior medial margin of the posterior weightbearing medial femoral condyle. Osseous/other: No fracture or pathologic marrow replacing process. IMPRESSION: 1. Complex tear at the posterior horn of the medial meniscus. 2. Mild tricompartmental osteoarthritis with regions of moderate grade chondral malacia along the beatriz ghtbearing medial femoral condyle, high-grade chondral malacia along the inferior trochlea and small region of high-grade chondromalacia along the posterior rim of the weightbearing lateral femoral cond yle. 3. Small right knee joint effusion and moderate-sized Lee's cyst. Reviewed, dictated and finalized at location A. IMPRESSION: 1. Complex tear at the posterior horn of the medial meniscus. 2. Mild tricompartmental osteoarthritis with regions of moderate grade chondral malacia along the weightbearing medial femoral condyle, high-grade chondral ma lacia along the inferior trochlea and small region of high-grade chondromalacia along the posterior rim of the weightbearing lateral femoral condyle. 3. Small right knee joint effusion and moderate-sized Lee's cyst.
== END 2024-05-10 07:29 ==
PROVIDERS: PCP Emergency Medicine; Visit Provider Emergency Medicine
DX: S83.231A Complex tear of medial meniscus, current injury, right knee, initial encounter (principal); M17.11 Unilateral primary osteoarthritis, right knee; M94.261 Chondromalacia, right knee; M25.461 Effusion, right knee; M71.21 Synovial cyst of popliteal space [Baker], right knee; X58.XXXA Exposure to other specified factors, initial encounter
CPT/HCPCS: 73721

== ENCOUNTER 2024-12-07 20:06 | Inpatient (IN) | payer OTHER, SELFPAY ==
--- NOTE | ~2024-12-07 | XR_ITS ---
EXAMINATION: XR sm bowel follow through DATE: 12/09/2024 13:27 INDICATION: Small bowel obstruction TECHNIQUE: Motor Vehicles Inspector radiograph(s) of the abdomen was/were obtained. Water-soluble oral contrast was admi nistered, and sequential radiographs of the abdomen were obtained until oral contrast was noted to be in the proximal colon. COMPARISON: None. FINDINGS: Nasogastric tube tip in proximal side port in the body the stomach. There are a few mildly dilated ga s-filled loops of bowel in the central abdomen. Transit time from the stomach to proximal colon was approximately 45 minutes. 3 the contrast passes t hrough a few transiently mildly dilated loops of small bowel in the central and left abdomen. IMPRESSION: 1. A few nonspecific transiently mildly dilated loops of small bowel but with no delayed transit to t he colon to suggest obstruction. Reviewed, dictated and finalized at location A. ALL APPLICATION SUPERVISOR IMPRESSION: 1. A few nonspecific transiently mildly dilated loops of small bowel but with n o delayed transit to the colon to suggest obstruction.
--- NOTE | ~2024-12-07 | XR_ITS ---
Upright portable view views of the abdomen Clinical history: NG tube placement Findings: NG tube in satisfactory position. Other small bowel loops are compatible small bowel obstru ction. No free air evident. No abnormal mass lesion or calcification is seen. Osseous structures are intact. Impression: NG tube in satisfactory position. Small bowel obstruction. Reviewed, dictated and finalized at [facility]. NING AND DEVELOPMENT HEAD Impression: NG tube in satisfactory position. Small bowel obstruction.
--- NOTE | ~2024-12-07 | CT_ITS ---
CT of the Abdomen and Pelvis: Indication: Obstruction Technique: 2.5 mm axial scans were obtained through the abdomen and pelvis following intravenous adm inistration of 100 cc of Omnipaque 350. Dose reduction technique was used on this scan by utilizing a utomated exposure control and iterative reconstruction technique. The dose-length product (DLP) was 9 28.89 mGy-cm. COMPARISON: 10/04/2021 Findings: Scans through the lung bases are unremarkable. The liver, spleen, pancreas, gallbladder, adrenals and kidneys are within normal limits. No evidence of aortic aneurysm. No lymphadenopathy. There are multiple proximal dilated small bowel loops, with transition point in the left upper quadra nt. Distal small bowel loops are decompressed. Large bowel is decompressed. Images through the pelvis were performed. Urinary bladder unremarkable. No pelvic mass seen. No ascit es. Impression: Small bowel obstruction, transition point in the left upper quadrant. Reviewed, dictated and finalized at [facility]. R PLANT MECHANIC Impression: Small bowel obstruction, transition point in the left upper quadrant.
--- NOTE | ~2024-12-07 | XR_ITS ---
Supine and upright views of the abdomen Clinical history: Small bowel obstruction COMPARISON: 12/28/2012 Findings: NG tube in place. Bowel gas pattern is somewhat nonspecific, with a few mildly distended up per abdominal small bowel loops.. No abnormal mass lesion or calcification is seen. Osseous structure s are intact. Impression: Mildly distended upper small bowel loops. Mild or partial small bowel obstruction is a consideration. NG tube in place. Reviewed, dictated and finalized at location M. D WASTE ANALYST Impression: Mildly distended upper small bowel loops. Mild or partial small bowel obstructi on is a consideration. NG tube in place.
--- OUTSIDE RECORDS SUMMARY | 2024-12-07 20:08 | XMS_ITS | Clinical Summary ---
Author Organization [facility] Address [address] [place] [address] Phone Care Team Providers Care College Service Officer Name Role Phone Serge Hansen MD Primary Care Provider [phone] Allergies No known active allergies Medications ketorolac tromethamine (ACULAR) 0.5 % solution Administer 1 Drop in right eye 4 times daily as needed for Pain. 10 mL 9 Active mupirocin (BACTROBAN) 2 % Ointment Apply to affected area daily. 15 Gram None 9 Active traMADol (ULTRAM) 50 mg tablet Take 1 Tablet (50 mg) by mouth every 6 hours as needed for Pain, Moderate or Pain, Severe. 10 Tablet 9 Active losartan potassium (LOSARTAN ORAL) Take by mouth. Active paroxetine HCl (PAXIL ORAL) Take by mouth. 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 Gender Identity Not on file Sexual Orientation Not on file Last Filed Vital Signs Vital Sign Reading Time Taken Comments Blood Pressure 178/124 11/15/2018 1:33 PM CONTROL VALVE TECHNICIAN Pulse 81 11/15/2018 11:50 AM CONTROL VALVE TECHNICIAN Temperature 36.7 ??C (98.1 ??F) 11/15/2018 11:[address] Respiratory Rate 16 11/15/2018 1:27 PM CONTROL VALVE TECHNICIAN Oxygen Saturation 100% 11/15/2018 1:27 PM CONTROL VALVE TECHNICIAN Inhaled Oxygen Concentration - - Weight 104.3 kg (230 lb) 11/15/2018 11:50 AM CONTROL VALVE TECHNICIAN Height 185.4 cm (6' 1 ) 11/15/2018 11:50 AM CONTROL VALVE TECHNICIAN Body Mass Index 30.34 11/15/2018 11:50 AM CONTROL VALVE TECHNICIAN Plan of Treatment Health Maintenance Due Date Last Done Comments DTAP/TDAP/TD VACCINES (1 - Tdap) 1985 HEPATITIS B VACCINES (1 of 3 - 19+ 3-dose series) 1985 COLORECTAL SCREENING 2011 Colorectal Cancer Screening 2011 FIT-DNA Q 3 years 2011 FIT/FOBT Q 1 year 2011 Flex Sig/CT Colonography Q 5 years 2011 ZOSTER VACCINE (1 of 2) 2016 INFLUENZA VACCINE (#1) 2024 PNEUMOCOCCAL VACCINE 0-64 YEARS Aged Out No longer eligible based on patient's age to complete this topic Insurance [facility] Care Teams College Service Officer Relationship Specialty Start Date End Date Serge Hansen MD [address] [place] [address] PCP - General Internal Medicine 11/15/18
--- OUTSIDE RECORDS SUMMARY | 2024-12-07 20:08 | XMS_ITS | Clinical Summary ---
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
--- OUTSIDE RECORDS SUMMARY | 2024-12-07 20:08 | XMS_ITS | Referral Summary ---
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
[2024-12-07 20:09] VITALS: BP 143/87; PULSE 85; RESP 19; TEMP 36.5; O2SAT 100
[2024-12-07 20:49] LABS: Basophils Percent Auto 0.1 % (0.2-1.2); Eosinophils Percent Auto 0.5 % (0-4.4); Hematocrit 43.7 % (42.0-52.0); Hemoglobin 16.4 g/dL (14.0-18.0); Immature Granulocyte Absolute 0.01 K/mm3 (0.00-0.031); Immature Granulocyte Percent A 0.1 % (0-0.5); Lymphocytes Absolute Auto 0.26 K/mm3 (0.9-3.2); Lymphocytes Percent Auto 3.2 % (18.3-44.2); Mean Corpuscular HGB Conc 37.5 g/dl (32-36); Mean Corpuscular Hemoglobin 33.6 pg (26-34); Mean Corpuscular Volume 89.5 fl (80-100); Mean Platelet Volume 11.4 fl (7.4-10.4); Monocytes Absolute Auto 0.3 K/mm3 (0.1-0.6); Neutrophils Absolute Auto 7.4 K/mm3 (1.3-6.7); Neutrophils Percent Auto 92.1 % (45.5-73.1); Platelet Count Result 214 k/mm3 (150-375); Red Blood Count 4.88 M/mm3 (4.6-6.20); Red Cell Distribution Width 12.2 % (11.5-14.5); White Blood Count 8.1 K/mm3 (4.5-10.0)
[2024-12-07 21:08] LABS: Alanine Aminotransferase 24 U/L (6-50); Albumin Level 4.5 g/dL (3.5-5.1); Alkaline Phosphatase 70 U/L (38-126); Anion Gap 13 mmol/L (4-12); Aspartate Amino Transferase 21 U/L (17-59); Bilirubin,Total 1.5 mg/dL (0.2-1.3); Blood Urea Nitrogen 16 mg/dL (9-20); Calcium 9.8 mg/dL (8.4-10.2); Carbon Dioxide 24 mmol/L (22-30); Chloride 97 mmol/L (98-107); Estimated CRCL calculation 96 ml/min; Estimated Glomerular Filt Rate > 60; Glucose 128 mg/dL (65-110); Lipase 57 U/L (23-300); Potassium 3.4 mmol/L (3.4-5.0); Sodium 134 mmol/L (137-145)
[2024-12-07 21:26] LABS: Influenza A QL RT-PCR Negative (Negative); Influenza B QL RT-PCR Negative (Negative); RSV RNA, RT-PCR Negative (Negative); SARS-CoV-2 RNA PCR Negative (Negative)
[2024-12-07 23:05] LABS: Add Urine Microscopic? YES; Appearance Urine Clear (Clear); Bacteria Urine None Seen /hpf; Bilirubin Urine 1+ (Negative); Blood Urine Negative (Negative); Color Urine Dark Yellow (Yellow); Glucose Urine UA Negative (Negative); Ketones Urine Trace mg/dL (Negative); Leukocyte Esterase Ur Negative LEU/UL (Negative); Nitrate Urine Negative (Negative); Non Pathogenic Casts 0-2; Protein Urine Trace mg/dL (Negative); RBC Urine 0-2 /hpf (0-2); Specific Grav Ur 1.028 (1.001-1.035); Squamous Epithelial Cell Urine None Seen /hpf (Few); WBC Urine 0-5 /hpf (0-3)
--- OUTSIDE RECORDS SUMMARY | 2024-12-07 23:06 | XMS_ITS | Clinical Summary ---
Author Organization [facility] Address [address] [place] [address] Phone Care Team Providers Care Hydraulic Specialist Name Role Phone Serge Hansen MD Primary Care Provider [phone] Allergies No known active allergies Medications ketorolac [...] on file Legal Sex Male 11:37 AM CARPENTER/LABOR Gender Identity Not on file Sexual Orientation Not on file Last Filed Vital Signs Vital Sign Reading Time Taken Comments Blood Pressure 178/124 11/15/2018 1:33 PM CARPENTER/LABOR Pulse 81 11/15/2018 11:50 AM CARPENTER/LABOR Temperature 36.7 ??C (98.1 ??F) 11/15/2018 11:[address] Respiratory Rate 16 11/15/2018 1:27 PM CARPENTER/LABOR Oxygen Saturation 100% 11/15/2018 1:27 PM CARPENTER/LABOR Inhaled Oxygen Concentration - - Weight 104.3 kg (230 lb) 11/15/2018 11:50 AM CARPENTER/LABOR Height 185.4 cm (6' 1 ) 11/15/2018 11:50 AM CARPENTER/LABOR Body Mass Index 30.34 11/15/2018 11:50 AM CARPENTER/LABOR Plan of Treatment Health Maintenance Due Date [...] patient's age to complete this topic Insurance [facility] Care Teams Hydraulic Specialist Relationship Specialty Start Date End Date Serge Hansen MD [address] [place] [address] PCP - General Internal Medicine 11/15/18
[2024-12-07] MEDS: ONDANSETRON INJ 4 MG/2 ML VIAL IV PUSH (23:26)
[2024-12-07] MEDS: HYDROmorphone HCL INJ (*CRX) 1 MG/ML SYR IV PUSH (23:26)
[2024-12-07 23:28] VITALS: BP 129/78; PULSE 74; RESP 16; O2SAT 97
[2024-12-07] MEDS: LACTATED RINGERS 1,000 ML 999 ML IV CONT (23:28)
[2024-12-08] VITALS (9 sets, daily range): BP systolic 116–145; BP diastolic 80–97; PULSE 70–99; RESP 14–18; TEMP 36.3–37; O2SAT 92–100; BMI 29.8
--- NOTE | 2024-12-08 00:44 | ED.ABDPAIN ---
HPI - Abdominal Pain General Chief Complaint: Abdominal Pain Stated Complaint: Abd pain, nausea, dizziness Time Seen by Provider: 12/07/24 22:31 History of Present Illness HPI narrative: 59-year-old male with a past medical history including hypertension, prostate cancer status post prostatectomy, previous bowel obstruction without surgical intervention. Today patient presents to the emergency room with chief complaint of epigastric and right-sided upper abdominal pain, nausea vomiting x3 episodes, inability to tolerate p.o. intake. He states he is having normal bowel movements without any constipation or obstipation. Endorses dull aching pain constant than intermittent sharp stabbing pain in the epigastrium. Patient is uncomfortable appearing, not able to tolerate p.o. intake at this time. Denies any recent injuries or illnesses. No history of abdominal surgeries besides his prostatectomy. Endorses that he previously had a bowel obstruction with conversations on eating a diverting colostomy however this resolved with conservative therapy and did not receive his surgery. This was at outside facility according to him. Denies any fever, chills and states that he otherwise was in his normal state of health yesterday without concern. Denies any chest pain, shortness a breath, back pain, dysuria, hematuria, melena, diarrhea. Related Data Home Medications ?Medication ?Instructions ?Recorded ?Confirmed ?Last Taken ?Type sildenafil 100 mg tablet 100 mg PO .COMPLEX PRN sexual 12/08/24 12/08/24 Unknown History activity Allergies Allergy/AdvReac Type Severity Reaction Status Date / Time No Known Allergies Allergy Verified 10/24/24 10:46 Review of Systems Review of Systems: As reviewed above in HPI [facility] Past Medical History Medical History Arthritis of left knee Arthritis of right knee Knee effusion Left shoulder pain Cancer Fleshy skin mole Hypertension Surgical History Surgical History History of prostatectomy H/O arthroscopic knee surgery Family History Family History Father Family history of malignant neoplasm, Onset Age: 65 Hypertension Heart disease Mother Hypertension Heart disease Other Cerebrovascular accident Diabetes mellitus Family history of arthritis Family history of cardiovascular disease Family history of coronary artery disease Social History Social History Smoking status: Never smoker Alcohol intake: current Drinks per week: 12 Substance use: never Substance use type: does not use Do You Feel Safe in your Home?: Yes Lack of Transportation: No Lack of Food: Never True Current Housing: I Have Housing Concerned About Future Housing: No Difficulty Paying Gas/Electric Bills: No Difficulty Paying for Meds: No Currently Unemployed: No Education: High School Diploma/GED Difficulty w/ Childcare or Family Care: No Living arrangements: with family Occupation/Education: occupation 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 Mucous membranes moist. NECK: Supple. CHEST: [Clear to auscultation. No respiratory distress.] HEART: [Regular rate and rhythm]. No murmur heard. [Normal peripheral pulses.] ABDOMEN: Soft and nondistended, tender to palpation in the epigastrium right upper quadrant focally, no evidence of peritonitis, [No rigidity or guarding] EXTREMITIES: Normal range of motion. [No edema.] SKIN: Warm, dry, no rash. NEURO: [No focal deficits]. Alert and oriented [x3.] PSYCH: [Normal mood and affect.] Course Vital Signs Vital signs: Vital Signs Temperature 36.5 C 12/07/24 20:09 Pulse Rate 85 12/07/24 20:09 Respiratory Rate 19 12/07/24 20:09 Blood Pressure 143/87 H 12/07/24 20:09 Pulse Oximetry 100 12/07/24 20:09 Oxygen Delivery Room Air 12/07/24 20:09 Temperature 36.3 C L 12/08/24 02:59 Pulse Rate 70 12/08/24 03:42 Respiratory Rate 14 12/08/24 03:42 Blood Pressure 137/82 12/08/24 02:59 Pulse Oximetry 98 12/08/24 03:42 Oxygen Delivery Room Air 12/08/24 03:42 MDM - Abdominal Pain MDM Narrative Medical decision making narrative: 59-year-old male with a past medical history of prostate cancer status post prostatectomy, hypertension and previous reported bowel obstruction that did not require surgical intervention. Presents today with epigastric and right upper quadrant abdominal pain associated with 3 episodes of nausea and vomiting. States he is not able tolerate p.o. intake today. Was otherwise in her normal state of health yesterday. No fever, chills, diarrhea, constipation, chest pain, shortness a breath. He has a tender epigastrium and right upper quadrant focally, negative Landon sign. Is uncomfortable appearing but his vital signs are reassuring. He was provided Dilaudid and Zofran for symptom control as well as a fluid bolus while workup underway including CBC, CMP, lipase, LFTs, urinalysis, CT scan with contrast. Differential includes gastroenteritis, gastritis, bowel obstruction, cholecystitis, cholelithiasis, renal colic. Workup shows no leukocytosis or anemia. Electrolytes show no significant derangements. Normal renal and hepatic function panel. Negative lactic acid. Urinalysis without signs of infection. COVID fluid RSV swabs are negative. CT scan shows small bowel obstruction with high-grade transition and transition point in left upper quadrant. I spoke with General surgery Dr. Garcia over the phone and relayed the patient's imaging findings and clinical exam to the surgeon. Recommendations for NG tube insertion at this time and admission to the surgical services for possible intervention. Patient was relayed the information and agreeable to NG tube insertion which was placed without complication with satisfactory positioning. Patient's successfully admitted to the hospital at this time to a medical-surgical bed. Remains hemodynamically stable, improved clinically after medications and NG tube. Medical Records Attestation: I reviewed the patient's medical records. Lab Data Attestation: I reviewed the patient's lab results. 12/07/24 20:43 12/07/24 20:43 Labs: Lab Results 12/07/24 12/07/24 Range/Units 20:43 22:51 WBC 8.1 (4.5-10.0) K/mm3 RBC 4.88 (4.6-6.20) M/mm3 Hgb 16.4 D (14.0-18.0) g/dL Hct 43.7 (42.0-52.0) % MCV 89.5 (80-100) fl MCH 33.6 (26-34) pg MCHC 37.5 H (32-36) g/dl RDW 12.2 (11.5-14.5) % Plt Count 214 (150-375) k/mm3 MPV 11.4 H (7.4-10.4) fl Immature Gran % (Auto) 0.1 (0-0.5) % Neut % (Auto) 92.1 H (45.5-73.1) % Lymph % (Auto) 3.2 L (18.3-44.2) % [place] % (Auto) 4.0 (2.6-8.5) % Eos % (Auto) 0.5 (0-4.4) % Baso % (Auto) 0.1 L (0.2-1.2) % Lymph # (Auto) 0.26 L (0.9-3.2) K/mm3 [place] # (Auto) 0.3 (0.1-0.6) K/mm3 Eos # (Auto) 0.0 (0-0.3) K/mm3 Baso # (Auto) 0.0 (0.0-0.1) K/mm3 Abs Immat Gran (auto) 0.01 (0.00-0.031) K/mm3 Absolute Neuts (auto) 7.4 H (1.3-6.7) K/mm3 Absolute Nucleated RBC 0.000 (0.0-0.012) K/mm3 Nucleated RBC % 0.0 (0.0-0.2) % Sodium 134 L (137-145) mmol/L Potassium 3.4 (3.4-5.0) mmol/L Chloride 97 L (98-107) mmol/L Carbon Dioxide 24 (22-30) mmol/L Anion Gap 13 H (4-12) mmol/L BUN 16 (9-20) mg/dL Creatinine 0.93 (0.7-1.3) mg/dL Estim Creat Clear Calc 96 ml/min Estimated GFR > 60 (59 - ) Glucose 128 H (65-110) mg/dL Calcium 9.8 (8.4-10.2) mg/dL Total Bilirubin 1.5 H (0.2-1.3) mg/dL AST 21 (17-59) U/L ALT 24 (6-50) U/L Alkaline Phosphatase 70 (38-126) U/L Total Protein 8.0 (6.3-8.2) g/dL Albumin 4.5 (3.5-5.1) g/dL Lipase 57 (23-300) U/L Urine Color Dark yellow (Yellow) Urine Appearance Clear (Clear) Urine pH 6.0 (5.0-9.0) Ur Specific [place] 1.028 (1.001-1.035) Urine Protein Trace (Negative) mg/dL Urine Glucose (UA) Negative (Negative) mg/dL Urine Ketones Trace H (Negative) mg/dL Ur Blood (Man) Negative (Negative) Urine Nitrate Negative (Negative) Urine Bilirubin 1+ H (Negative) Urine Urobilinogen 1.0 (<2.0) mg/dL Leukocyte Esterase Rfl Negative (Negative) DORETHA/UL Urine RBC 0-2 (0-2) /hpf Urine WBC 0-5 (0-3) /hpf Ur Squamous Epith Cells None seen (Few) /hpf Urine Bacteria None seen /hpf Urine Casts 0-2 Influenza A (RT-PCR) Negative (Negative) Influenza B (RT-PCR) Negative (Negative) RSV (RT-PCR) Negative (Negative) SARS-CoV-2 RNA (RT-PCR) Negative (Negative) Imaging Data Attestation: I personally reviewed and interpreted this imaging study as follows: Radiologist's impression: ITS Impressions Abdomen/Pelvis CT 12/08/24 05:33 Impression: Small bowel obstruction, transition point in the left upper quadrant. Abdomen X-Ray 12/08/24 06:14 Impression: NG tube in satisfactory position. Small bowel obstruction. Discharge Plan Discharge Clinical Impression: Small bowel obstruction Patient Disposition: Still a Patient Condition: Stable
[2024-12-08] MEDS: MIDAZOLAM HCL (*CRX) 2 MG/2 ML VIAL 1 MG IV PUSH (02:01)
[2024-12-08] MEDS: ONDANSETRON INJ 4 MG/2 ML VIAL IV PUSH ×4 (02:01→23:31)
[2024-12-08 02:45] LABS: Lactic Acid Reflex 1.4 mmol/L (0.7-2.0)
--- NOTE | 2024-12-08 03:00 | ADMGEN ---
This patient, Eleuterio Anand, was admitted to [facility] Surg Room 330-01. Patient/family oriented to hospital policies and general routines including ID bracelet, bed and alarms, visiting hours, pain management, procedures, bathroom and other care routines, personal items, smoking policy, room service/diet, and visiting hours. Information on how to activate the Rapid Response Team has been discussed. Patient/Family are encouraged to report perceived risks to care and to ask questions if they do not understand what they are told or what they should do.
[2024-12-08] MEDS: LACTATED RINGERS 1,000 ML 125 ML IV CONT ×2 (03:32→11:36)
[2024-12-08] MEDS: MORPHINE SULFATE (*CRX) 4 MG/ML INJ IV PUSH ×5 (03:33→23:32)
[2024-12-08] MEDS: PHENOL/SOD PHENO SPRAY CHERRY (*BKC) 1 SPRAY MUCOUS MEM (10:54)
--- NOTE | 2024-12-08 14:29 | P.HP_ITS ---
H&P: HPI History of Present Illness Date/Time: 12/08/24 14:29 Chief Complaint: Abdominal pain Narrative: This is a 59-year-old man with PMH of prostate cancer s/p radical prostatectomy in 2021, hypertension, and anxiety, who presented to the emergency department overnight with complaints of upper abdominal pain. He has a history of small- bowel obstructions x2. He was treated conservatively with NG tube decompression in 2012 for a partial obstruction and again had a small-bowel obstruction in 2017 that resolved with conservative management. Both bowel obstructions were prior to any abdominal surgery. He reports having coffee and a muffin for breakfast yesterday. Shortly after eating breakfast, he developed upper abdominal pain. His father in law, who lives in his household, was admitted a week ago with abdominal pain and vomiting, therefore he thought he may have had some viral illness from his family. The patient's abdominal pain progressed throughout the day and he developed nausea and vomiting. He reports 3-4 bilious-appearing emesis through the day. He reports his symptoms felt similar to his previous bowel obstructions and he tried to give it time at home with bowel rest. His pain progressed through the evening and he eventually presented to the ED for evaluation. In the ED, vital signs were stable. Labs showed a white blood cell count of 8100, lactic acid 1.4, sodium 134, potassium 3.4. Influenza a/B, RSV, and COVID negative. CT scan of the abdomen and pelvis showed a small-bowel obstruction with transition point in the left upper quadrant. NG tube was placed and he was admitted. He is now seen on the medical floor. He is still having abdominal pain that he reports is coming in waves. The pain feels like muscle spasms across his upper abdomen. He is passing flatus. His last bowel movement was yesterday morning and was reportedly normal. Denies any recent diarrhea or other symptoms. The patient reports taking his home medications yesterday morning. He takes multiple antihypertensives for her high blood pressure. He also takes topiramate and phentermine reportedly for weight loss, which he started over 6 months ago and has lost 30 lb. Review of Systems Review of Systems: All systems reviewed & are unremarkable except as noted in HPI and below PMFSH Past Medical History Medical History Claustrophobia Takes PRN xanax Arthritis of left knee Arthritis of right knee Knee effusion Left shoulder pain Cancer Fleshy skin mole Hypertension Surgical History Surgical History History of prostatectomy H/O arthroscopic knee surgery Family History Family History Father Family history of malignant neoplasm, Onset Age: 65 Hypertension Heart disease Mother Hypertension Heart disease Other Cerebrovascular accident Diabetes mellitus Family history of arthritis Family history of cardiovascular disease Family history of coronary artery disease Social History Social History Smoking status: Never smoker Alcohol intake: current Drinks per week: 12 Substance use: never Substance use type: does not use Do You Feel Safe in your Home?: Yes Lack of Transportation: No Lack of Food: Never True Current Housing: I Have Housing Concerned About Future Housing: No Difficulty Paying Gas/Electric Bills: No Difficulty Paying for Meds: No Currently Unemployed: No Education: High School Diploma/GED Difficulty w/ Childcare or Family Care: No Living arrangements: with family Occupation/Education: occupation 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- [employer] Gender identity (if verbalized by the patient): Male Spiritual care concerns: No Meds Home Medications and Allergies Home Medications ?Medication ?Instructions ?Recorded ?Confirmed ?Type cholecalciferol (vitamin D3) 50 100 mcg (2 x 50 mcg (2,000 unit)) 01/31/24 12/08/24 Rx mcg (2,000 unit) capsule PO DAILY #180 caps albuterol sulfate 90 mcg/actuation See Rx Instructions .Route 02/25/24 12/08/24 Rx aerosol inhaler .COMPLEX #8.5 grams metoprolol succinate 100 mg See Rx Instructions .Route 05/05/24 12/08/24 Rx tablet,extended release 24 hr .COMPLEX #90 tabs amlodipine 10 mg tablet See Rx Instructions .Route 09/17/24 12/08/24 Rx .COMPLEX #90 tabs alprazolam 0.5 mg tablet 0.5 mg PO BID PRN anxiety #30 tabs 10/24/24 12/08/24 Rx losartan 100 See Rx Instructions .Route 11/28/24 12/08/24 Rx mg-hydrochlorothiazide 25 mg tablet .COMPLEX #90 tabs phentermine 37.5 mg tablet 37.5 mg PO DAILY #30 tabs 11/28/24 12/08/24 Rx topiramate 25 mg tablet See Rx Instructions .Route 11/28/24 12/08/24 Rx .COMPLEX #180 tabs sildenafil 100 mg tablet 100 mg PO .COMPLEX PRN sexual 12/08/24 12/08/24 History activity Allergies Allergy/AdvReac Type Severity Reaction Status Date / Time No Known Allergies Allergy Verified 10/24/24 10:46 Vital Signs Vital Signs - 24 hr 12/07/24 20:09 12/07/24 23:28 12/08/24 00:31 Temperature 97.7 F Pulse Rate 85 74 70 Respiratory Rate 19 16 16 Blood Pressure 143/87 H 129/78 124/85 Pulse Oximetry 100 97 97 Oxygen Delivery Room Air 12/08/24 02:14 12/08/24 02:48 12/08/24 02:59 Temperature 97.3 F L Pulse Rate 84 70 Respiratory Rate 16 14 Blood Pressure 116/80 139/89 137/82 Pulse Oximetry 100 98 Oxygen Delivery 12/08/24 03:42 12/08/24 08:55 12/08/24 08:55 Temperature Pulse Rate 70 Respiratory Rate 14 16 16 Blood Pressure Pulse Oximetry 98 98 98 Oxygen Delivery Room Air Room Air 12/08/24 11:00 Temperature 98.6 F Pulse Rate 77 Respiratory Rate 18 Blood Pressure 131/85 Pulse Oximetry 92 Oxygen Delivery Exam Const: General: no acute distress and uncomfortable (Due to abdominal pain) Nutritional Appearance: average body habitus Orientation/consciousness: patient oriented x3 HENMT: Head: normocephalic and atraumatic Ears: hearing grossly normal bilaterally Mouth: Yes moist mucous membranes Eyes: General: appearance normal, both eyes and all related structures Pupils: Equal, round and reactive pupils present Neck: Neck: normal visual inspection and full ROM Resp: Effort & Inspection: no respiratory distress Auscultation: clear to auscultation bilaterally Cardio: Rate: regular rate Rhythm: regular rhythm Peripheral pulses: Peripheral pulses 2+ throughout GI: Inspection: non-distended, no visible herniation and other (No large abdominal scars) GI Palp: Yes Soft to palpation, Yes Tenderness to palpation present (GI) (Across the lower abdomen), No Guarding due to palpation present (GI) and No Rebound tenderness present Auscultation: Hypoactive bowel sounds present Rectal Exam: deferred Skin: General skin exam: normal color Neuro: General: moves all extremities and no focal motor deficits Speech: normal speech Motor exam (neuro): 5/5 motor strength present throughout Extrem: General: normal to inspection and no edema Psych: Mental Status: mental status grossly normal Attitude: cooperative Insight: Good insight present (Psych) Judgement: Good judgement present (Psych) H&P: Results Labs Labs: Short CBC 12/07/24 Range/Units 20:43 WBC 8.1 (4.5-10.0) K/mm3 Hgb 16.4 D (14.0-18.0) g/dL Hct 43.7 (42.0-52.0) % Plt Count 214 (150-375) k/mm3 BMP 12/07/24 20:43 Sodium 134 L Potassium 3.4 Chloride 97 L Carbon Dioxide 24 BUN 16 Creatinine 0.93 Glucose 128 H Calcium 9.8 Liver Function 12/07/24 Range/Units 20:43 Total Bilirubin 1.5 H (0.2-1.3) mg/dL AST 21 (17-59) U/L ALT 24 (6-50) U/L Alkaline Phosphatase 70 (38-126) U/L Albumin 4.5 (3.5-5.1) g/dL Urine 12/07/24 Range/Units 22:51 Urine Color Dark yellow (Yellow) Urine Appearance Clear (Clear) Urine pH 6.0 (5.0-9.0) Ur Specific [place] 1.028 (1.001-1.035) Urine Protein Trace (Negative) mg/dL Urine Glucose (UA) Negative (Negative) mg/dL Imaging CT scan - abdomen: Radiologist's impression: ITS Impressions Abdomen/Pelvis CT 12/08/24 05:33 Impression: Small bowel obstruction, transition point in the left upper quadrant. Abdomen X-Ray 12/08/24 06:14 Impression: NG tube in satisfactory position. Small bowel obstruction. Assessment and Plan Assessment and plan (1) Small bowel obstruction: Code(s): K56.609 - Unspecified intestinal obstruction, unspecified as to partial versus complete obstruction Status: Acute Assessment and Plan: * CT scan reviewed and shows evidence of a small bowel obstruction with transition point in the LUQ. He has been treated conservatively for a small bowel obstruction x 2 in 2012 and 2017 prior to having abdominal surgery. Since then, he has had a radical prostatectomy for prostate cancer. He is hemodynamically stable and does not have any peritoneal signs on exam. He is passing some flatus this morning. We will continue with NG tube decompression, bowel rest, and IV fluids. Will repeat a KUB and labs tomorrow morning. Discussed with the patient that if this does not resolve with conservative measures, then he would require surgical exploration. May consider water- soluble small bowel series in the next 1-2 days to further evaluate. (2) Hypertension: Qualifiers: Hypertension type: unspecified Qualified Code(s): I10 - Essential (primary) hypertension Code(s): I10 - Essential (primary) hypertension Status: Acute Assessment and Plan: * Hold home medications while NPO. BP stable. Will add PRN metoprolol IV push Q6H as needed for hypertension. (3) Anxiety: Code(s): F41.9 - Anxiety disorder, unspecified Status: Acute Assessment and Plan: * Will hold xanax. PRN Ativan while NPO for anxiety. He has a history of cla ustrophobia which is aggravated by the NG tube. Plan I have discussed the patient's case and plan of care with Dr. Garcia.
[2024-12-08] MEDS: LORazepam INJ (*CRX) 2 MG/ML VIAL 0.5 MG IV PUSH ×2 (14:44→22:04)
[2024-12-08] MEDS: KCL 20 MEQ/D5/0.9% SOD CHL 1,000 ML 100 ML IV CONT (15:31)
[2024-12-09] MEDS: KCL 20 MEQ/D5/0.9% SOD CHL 1,000 ML 100 ML IV CONT (00:58)
[2024-12-09 06:00] VITALS: BP 141/89; PULSE 94; RESP 18; TEMP 36.9; O2SAT 95
[2024-12-09 06:31] LABS: Hematocrit 39.5 % (42.0-52.0); Hemoglobin 14.1 g/dL (14.0-18.0); Mean Corpuscular HGB Conc 35.7 g/dl (32-36); Mean Corpuscular Hemoglobin 33.5 pg (26-34); Mean Corpuscular Volume 93.8 fl (80-100); Platelet Count Result 158 k/mm3 (150-375); Red Blood Count 4.21 M/mm3 (4.6-6.20); Red Cell Distribution Width 12.5 % (11.5-14.5); White Blood Count 4.8 K/mm3 (4.5-10.0)
[2024-12-09 06:47] LABS: Anion Gap 7 mmol/L (4-12); Blood Urea Nitrogen 13 mg/dL (9-20); Calcium 8.5 mg/dL (8.4-10.2); Carbon Dioxide 29 mmol/L (22-30); Chloride 100 mmol/L (98-107); Estimated CRCL calculation 88 ml/min; Estimated Glomerular Filt Rate > 60; Glucose 117 mg/dL (65-110); Potassium 3.3 mmol/L (3.4-5.0); Sodium 136 mmol/L (137-145)
[2024-12-09] MEDS: KCL 40 MEQ/D5/0.9% SOD CHL 1,000 ML 100 ML IV CONT ×2 (08:25→20:24)
[2024-12-09] MEDS: IBUPROFEN IV 800 MG/200 ML 800 MG/200 ML BAG 400 MG IVPB (08:28)
[2024-12-09 08:59] VITALS: RESP 18; O2SAT 95
--- NOTE | 2024-12-09 11:49 | P.PNGS_ITS ---
Progress Note: A&P Assessment and Plan (1) Small bowel obstruction: Code(s): K56.609 - Unspecified intestinal obstruction, unspecified as to partial versus complete obstruction Status: Acute Assessment and Plan: * Clinically improving. Plain films better today. He is not having any abdominal pain and no tenderness on exam. Will order water-soluble small- bowel follow-through. If contrast moves through, then we can remove the NG tube and start a clear liquid diet. Mild hypokalemia on labs, continuous IV fluids adjusted with 40 mEq KCL. (2) Hypertension: Qualifiers: Hypertension type: unspecified Qualified Code(s): I10 - Essential (primary) hypertension Code(s): I10 - Essential (primary) hypertension Status: Acute Assessment and Plan: * Blood pressure stable, continue to monitor. Home medications on hold while NPO. PRN IV Lopressor available if needed. (3) Anxiety: Code(s): F41.9 - Anxiety disorder, unspecified Status: Acute Assessment and Plan: * Continue p.r.n. Ativan while NPO Plan I have discussed the patient's case and plan of care with Dr. Garcia. Subjective Subjective Date/Time Seen: 12/09/24 11:49 Patient reports: no new complaints, feels better, flatus, bowel movement (Small liquid bowel movement) and afebrile Interval history: Patient feeling much better today. He denies any abdominal pain. He is passing lots of flatus. NG tube with minimal output overnight. Exam Const: General: comfortable and no acute distress Wili entation/consciousness: patient oriented x3 GI: Inspection: non-distended GI Palp: Yes Soft to palpation, No Tenderness to palpation present (GI) and No Guarding due to palpation present (GI) Auscultation: normal bowel sounds Objective Data Vital Signs Vital Signs: Vital Signs - 24 hr 12/08/24 14:00 12/08/24 19:45 12/08/24 22:00 Temperature 98.5 F 97.5 F L Pulse Rate 84 99 Respiratory Rate 18 18 Blood Pressure 132/88 145/97 H Pulse Oximetry 93 96 Oxygen Delivery Room Air 12/09/24 06:00 12/09/24 08:59 Temperature 98.4 F Pulse Rate 94 Respiratory Rate 18 18 Blood Pressure 141/89 H Pulse Oximetry 95 95 Oxygen Delivery Room Air Intake/Output Intake/Output: Intake & Output 01/25/25 01/26/25 01/27/25 01/28/25 23:59 23:59 23:59 23:59 Intake Total 2519 1875 Output Total 1750 400 Balance 769 1475 Meds/Results Medications: Active Medications Generic Name Dose Route Start Last Admin Trade Name Freq PRN Reason Stop Dose Admin Acetaminophen 650 mg 12/08/24 01:51 Acetaminophen 325 Mg Tablet PO Q4H PRN Mild Pain (1-3) or Fever Potassium Chloride/Dextrose/Sod Cl 1,000 mls @ 100 mls/hr 12/09/24 07:20 12/09/24 08:58 Kcl 40 Meq/D5ns IV CONT 100 mls/hr .Q10H JEREMÍAS Infusion Ibuprofen 800 mg in 200 mls @ 400 mls/hr 12/09/24 07:20 12/09/24 08:58 Caldolor 800 Mg/200 Ml IVPB Infused Q6HR JEREMÍAS Infusion Lorazepam 0.5 mg 12/08/24 14:13 12/08/24 22:04 Lorazepam Inj (*Crx) 2 Mg/Ml Vial IV PUSH 0.5 mg Q6H PRN Administration Anxiety Metoprolol Tartrate 5 mg 12/08/24 14:35 Metoprolol Tartrate Inj 5 Mg/5 Ml Vial IV PUSH Q6H PRN Blood Pressure - High Morphine Sulfate 4 mg 12/08/24 01:51 12/08/24 23:32 Morphine Sulfate (*Crx) 4 Mg/Ml Inj IV PUSH 4 mg Q2H PRN Administration Pain Rated 7-10 Morphine Sulfate 2 mg 12/08/24 14:11 Morphine Sulfate (*Crx) 2 Mg/Ml Inj IV PUSH Q2H PRN Pain Rated 4-6 Ondansetron HCl 4 mg 12/08/24 01:51 12/08/24 23:31 Ondansetron Inj 4 Mg/2 Ml Vial IV PUSH 4 mg Q4H PRN Administration Nausea Phenol 1 spray 12/08/24 10:17 12/08/24 10:54 Phenol/Sod Pheno [place] (*Bkc) MUCOUS MEM 1 spray PRN PRN Administration Sore Throat Radiology Results: ITS Impressions Abdomen/Pelvis CT 12/08/24 05:33 Impression: Small bowel obstruction, transition point in the left upper quadrant. Abdomen X-Ray 12/09/24 08:11 Impression: Mildly distended upper small bowel loops. Mild or partial small bowel obstruction is a consideration. NG tube in place. Labs Labs: Laboratory Results - last 24 hr 12/09/24 05:49 WBC 4.8 RBC 4.21 L Hgb 14.1 Hct 39.5 L MCV 93.8 MCH 33.5 MCHC 35.7 RDW 12.5 Plt Count 158 MPV 12.0 H Sodium 136 L Potassium 3.3 L Chloride 100 Carbon Dioxide 29 Anion Gap 7 BUN 13 Creatinine 0.91 Estim Creat Clear Calc 88 Estimated GFR > 60 Glucose 117 H Calcium 8.5
[2024-12-09 14:00] VITALS: BP 150/93; PULSE 85; RESP 18; TEMP 36.6; O2SAT 95
[2024-12-09 22:43] VITALS: BP 147/91; PULSE 85; RESP 14; TEMP 36.4; O2SAT 97
[2024-12-10] MEDS: KCL 40 MEQ/D5/0.9% SOD CHL 1,000 ML 100 ML IV CONT (05:14)
[2024-12-10 06:31] VITALS: BP 142/89; PULSE 79; RESP 14; TEMP 36.4; O2SAT 98
[2024-12-10 06:39] LABS: Hematocrit 38.6 % (42.0-52.0); Hemoglobin 13.3 g/dL (14.0-18.0); Mean Corpuscular HGB Conc 34.5 g/dl (32-36); Mean Corpuscular Hemoglobin 32.9 pg (26-34); Mean Corpuscular Volume 95.5 fl (80-100); Mean Platelet Volume 11.1 fl (7.4-10.4); Platelet Count Result 158 k/mm3 (150-375); Red Blood Count 4.04 M/mm3 (4.6-6.20); Red Cell Distribution Width 12.4 % (11.5-14.5); White Blood Count 4.1 K/mm3 (4.5-10.0)
[2024-12-10 06:51] LABS: Anion Gap 8 mmol/L (4-12); Blood Urea Nitrogen 10 mg/dL (9-20); Calcium 8.4 mg/dL (8.4-10.2); Carbon Dioxide 24 mmol/L (22-30); Chloride 110 mmol/L (98-107); Estimated CRCL calculation 98 ml/min; Estimated Glomerular Filt Rate > 60; Glucose 116 mg/dL (65-110); Potassium 3.8 mmol/L (3.4-5.0); Sodium 142 mmol/L (137-145)
[2024-12-10] MEDS: hydroCHLOROthiazide 25 MG TABLET PO (08:31)
[2024-12-10] MEDS: amLODIPine BESYLATE 10 MG TABLET PO (08:31)
[2024-12-10] MEDS: METOPROLOL SUCCINATE EXT REL 100 MG TABCR PO (08:31)
[2024-12-10] MEDS: LOSARTAN POTASSIUM 100 MG TABLET PO (08:32)
--- NOTE | 2024-12-10 11:33 | P.DS_ITS ---
DS: Admitting Diagnosis Discharge Date 12/10/2024 Admitting Diagnosis Small-bowel obstruction Hypertension Anxiety DS: Discharge Diagnosis Discharge Diagnosis (1) Small bowel obstruction: Code(s): K56.609 - Unspecified intestinal obstruction, unspecified as to partial versus complete obstruction Status: Acute (2) Hypertension: Qualifiers: Hypertension type: unspecified Qualified Code(s): I10 - Essential (primary) hypertension Code(s): I10 - Essential (primary) hypertension Status: Acute (3) Anxiety: Code(s): F41.9 - Anxiety disorder, unspecified Status: Acute DS: Summary Hospital Course Reason for hospitalization: This is a 59-year-old man who presented to the ED on 12/08/2024 with complaints of upper abdominal pain x1 day with associated nausea and vomiting. Workup in the ED showed CT evidence of a small-bowel obstruction with transition point in the left upper quadrant. He has a history of 2 small-bowel obstructions in the past that were treated conservatively. His only abdominal surgery was in 2021 when he had a radical prostatectomy for prostate cancer. This was actually after his previous 2 bowel obstructions. He was admitted for treatment of a small-bowel obstruction. Hospital Course: He had an NG tube placed to medium continuous suction for decompression. He was kept NPO with IV fluids while his NG tube was in place. Initially, he had a fair amount out of his NG tube and continued to have abdominal pain. He began to significantly improved by the following day. His abdominal pain had resolved and he was showing some signs of bowel function. His plain films were improving. He then had a water-soluble small-bowel follow-through that showed normal transit to the colon with no findings of a small-bowel obstruction. His NG tube was then removed and his diet was advanced as tolerated up to a regular diet today. He is moving his bowels and is not having any abdominal pain, jah sea, or vomiting. He is stable for discharge today and can follow up p.r.n. with surgery. Status at Discharge Functional status at discharge: independent ambulation Overall status at discharge: patient is progressing back to baseline Time Spent with Patient Time attestation: Total time spent providing and/or coordinating discharge services: Time spent: Less than 30 minutes Exam Const: General: comfortable and no acute distress Orientation/consciousness: patient oriented x3 GI: Inspection: non-distended GI Palp: Yes Soft to palpation, No Tenderness to palpation present (GI), No Guarding due to palpation present (GI) and No Rebound tenderness present Auscultation: normal bowel sounds DS: Data Data Completed and Pending Labs on day of discharge: Labs from last 24 hours 12/10/24 06:03 WBC 4.1 L RBC 4.04 L Hgb 13.3 L Hct 38.6 L MCV 95.5 MCH 32.9 MCHC 34.5 RDW 12.4 Plt Count 158 MPV 11.1 H Sodium 142 Potassium 3.8 Chloride 110 H Carbon Dioxide 24 Anion Gap 8 BUN 10 Creatinine 0.81 Estim Creat Clear Calc 98 Estimated GFR > 60 Glucose 116 H Calcium 8.4 Imaging Radiologist's impression: ITS Impressions Abdomen/Pelvis CT 12/08/24 05:33 Impression: Small bowel obstruction, transition point in the left upper quadrant. Abdomen X-Ray 12/08/24 06:14 Impression: NG tube in satisfactory position. Small bowel obstruction. Abdomen X-Ray 12/09/24 08:11 Impression: Mildly distended upper small bowel loops. Mild or partial small bowel obstruction is a consideration. NG tube in place. Small Bowel X-Ray 12/09/24 14:05 IMPRESSION: 1. A few nonspecific transiently mildly dilated loops of small bowel but with no delayed transit to the colon to suggest obstruction. Discharge Plan Discharge Attending physician on discharge: Rm Garcia Discharging Clinician: Geneva Allen Anticipated Discharge Date/Time: 12/10/24 13:00 Patient Disposition: Home, Self-Care Activity: as tolerated Diet: as tolerated and heart healthy Discharge Instructions: No follow-up with surgery needed. You may call if you have recurrent obstructive symptoms, such as abdominal pain, vomiting. Follow-up with your primary care provider as scheduled. Patient Instructions: Antibiotic Form Patient Language: Kinyarwanda Stand Alone Forms: General Discharge Information Follow-up/Referrals: Serge Hansen MD [Primary Care Provider] - Keep Reg. Scheduled Appt. Discharge Medications: Continued alprazolam 0.5 mg tablet 0.5 mg PO BID PRN (Reason: anxiety) Qty: 30 1RF sildenafil 100 mg tablet 100 mg PO .COMPLEX PRN (Reason: sexual activity) Rx Instructions: 100 mg orally TAKE 1 TABLE BY MOUTH APPROXIMATELY 1 HALF HOUR TO 4 HOURS BEFORE SEXUAL ACTIVITY. DO NOT USE MORE THAN 1 DOSE DAILY. PRN; cholecalciferol (vitamin D3) 50 mcg (2,000 unit) capsule 100 mcg PO DAILY Qty: 180 2RF albuterol sulfate 90 mcg/actuation HFA aerosol inhaler See Rx Instructions .ROUTE .COMPLEX Qty: 8.5 3RF Dose Instruction: INHALE 1 PUFF BY MOUTH EVERY 4 HOURS NEEDED FOR SHORTNESS OF BREATH OR WHEEZING Rx Instructions: INHALE 1 PUFF BY MOUTH EVERY 4 HOURS NEEDED FOR SHORTNESS OF BREATH OR WHEEZING metoprolol succinate 100 mg tablet extended release 24 hr See Rx Instructions .ROUTE .COMPLEX Qty: 90 2RF Dose Instruction: TAKE 1 TABLET BY MOUTH DAILY Rx Instructions: TAKE 1 TABLET BY MOUTH DAILY amlodipine 10 mg tablet See Rx Instructions .ROUTE .COMPLEX Qty: 90 2RF Dose Instruction: TAKE 1 TABLET BY MOUTH DAILY Rx Instructions: TAKE 1 TABLET BY MOUTH DAILY phentermine 37.5 mg tablet 37.5 mg PO DAILY Qty: 30 0RF Rx Instructions: must administer 30 minutes before or 1-2 hours after breakfast losartan-hydrochlorothiazide 100-25 mg tablet See Rx Instructions .ROUTE .COMPLEX Qty: 90 2RF Dose Instruction: TAKE 1 TABLET BY MOUTH DAILY Rx Instructions: TAKE 1 TABLET BY MOUTH DAILY topiramate 25 mg tablet See Rx Instructions .ROUTE .COMPLEX Qty: 180 2RF Dose Instruction: TAKE 1 TABLET BY MOUTH TWICE DAILY Rx Instructions: TAKE 1 TABLET BY MOUTH TWICE DAILY Date of admission: 12/08/24 12:58 Primary Care Provider: Serge Hansne Admitting Provider: Rm Garcia Attending physician on admission: Rm Garcia Condition: Stable Quality VTE Prophylaxis VTE prophylaxis: mechanical ordered If No VTE Prophylaxis Answer both mechanical and pharmacologic: Reason no pharmacologic proph: low risk/not indicated (also had a possibility of surgery initially)
== END 2024-12-10 12:50 | disposition home or self-care (01) | DRG 390 ==
LOC: ANHED 23:05 → ANH3MEDSUR 12-08 02:41
PROVIDERS: Admitting Provider Surgery; Emergency Provider Student in an Organized Health Care Education/Training Program; PCP Emergency Medicine; Visit Provider Nurse Practitioner Family
DX: K56.609 Unspecified intestinal obstruction, unspecified as to partial versus complete obstruction (principal); I10 Essential (primary) hypertension; M17.0 Bilateral primary osteoarthritis of knee; F41.9 Anxiety disorder, unspecified; Z20.822 Contact with and (suspected) exposure to COVID-19; Z85.46 Personal history of malignant neoplasm of prostate
CPT/HCPCS: 36415; 74018; 74177; 74250; 80048; 80053; 81001; 83605; 83690; 85025; 85027; 87637; 96361; 96374; 96375; 96376; 99285; A9270; G0378; J1171; J1741; J2060; J2250; J2270; J2405; J3480; J7120; Q9967